=== PATIENT | male | born 1965 | race Caucasian/White ===

== ENCOUNTER 2020-03-15 09:54 | Outpatient (CLI) | payer OTHER, SELFPAY ==
[2020-03-15 23:33] LABS: SARS-CoV-2 RNA PCR Negative
== END 2020-03-15 09:55 | disposition home or self-care (01) ==
PROVIDERS: PCP Internal Medicine; Visit Provider Internal Medicine
DX: Z20.822 Contact with and (suspected) exposure to COVID-19 (principal)
CPT/HCPCS: C9803; U0003

== ENCOUNTER 2023-11-09 06:46 | Emergency (ER) | payer SELFPAY ==
[2023-11-09 06:52] VITALS: BP 168/105; PULSE 87; RESP 20; TEMP 36.3; O2SAT 97
--- NOTE | 2023-11-09 07:20 | ED.SKABFB ---
HPI - Skin/Abscess/Foreign Bdy General Chief complaint: Skin/Abscess/Foreign Body Stated complaint: rash Time Seen by Provider: 11/09/23 07:01 Source: patient Mode of arrival: ambulatory Limitations: no limitations History of Present Illness HPI narrative: Patient presents with complaint of an itchy rash over which was body. He was seen at an urgent care for this and told it was poison sumac. At that time he was prescribed 3 prescriptions: Prednisone (40 mg for 1 week followed by 20 mg for 1 week with 5 days left; after receiving intramuscular steroid shot), cetirizine 1 pill daily for a week (gone), and triamcinolone cream. The portion of the rash that was on face and left leg are healing but the rash persists on his bilateral arms, right greater than left as well as on his abdomen and flanks bilaterally. The rash has been present for approximately 1 and half weeks, nearly 2. He denies any shortness of breath. He has been using p.r.n. Benadryl to help him sleep as he states the itchiness is the most problematic complaint. He is on medication for blood pressure. He denies any vision problems. Related Data Allergies Allergy/AdvReac Type Severity Reaction Status Date / Time No Known Allergies Allergy Verified 11/09/23 06:55 PMFSH Past Medical History Medical History (Updated 11/09/23 @ 07:36 by Naye Billy MD) Dyslipidemia Essential (primary) hypertension Gout Social History Social History Smoking status: Unknown if ever smoked Alcohol intake: current Alcohol use details: Whiskey Substance use: never Substance use type: does not use Living arrangements: with family Occupation/Education: occupation Gender identity (if verbalized by the patient): Male Sexual Orientation (if Verbalized by the Patient): Straight or Heterosexual Exam Narrative: GENERAL: Well-appearing, well-nourished, and in no acute distress. HEAD: Normocephalic, atraumatic. EYES: Non injected, non icteric ENT: Nares clear, no rhinorrhea or epistaxis. NECK: Supple. CHEST: Speaking in full sentences. No respiratory distress. HEART: Regular rate and rhythm. . ABDOMEN: Soft, nondistended. EXTREMITIES: Normal range of motion. No lower extremity edema. SKIN: Warm, dry. Well-healing rash on left figueroa. Raised erythematous pruritic rash over bilateral forearms particularly on the right. Rash is also present on bilateral lower abdomen and bile low back/flanks. Some evidence of excoriation, no vesicles. NEURO: No focal deficits. Alert and oriented x3. PSYCH: Normal mood and affect. Course Vital Signs Vital signs: Vital Signs Temperature 97.3 F L 11/09/23 06:52 Pulse Rate 87 11/09/23 06:52 Respiratory Rate 20 11/09/23 06:52 Blood Pressure 168/105 H 11/09/23 06:52 Pulse Oximetry 97 11/09/23 06:52 Oxygen Delivery Room Air 11/09/23 06:52 Temperature 97.3 F L 11/09/23 06:52 Pulse Rate 87 11/09/23 06:52 Respiratory Rate 20 11/09/23 06:52 Blood Pressure 168/105 H 11/09/23 06:52 Pulse Oximetry 97 11/09/23 06:52 Oxygen Delivery Room Air 11/09/23 06:52 MDM - Skin/Abscess/Foreign Bdy MDM Narrative Medical decision making narrative: Patient presents with an itchy rash that has been present for 1 and half to 2 weeks. He was diagnosed with poison sumac and given steroids, antihistamines, and a cream. In the emergency department he is afebrile with vital signs notable for hypertension. Patient does have extensive rash. He is given 1 time dose of Atarax for itching as well in the emergency department and prescribed diphenhydramine for outpatient use. I do believe he would benefit from extended use of prednisone so will add prescription for a few more tablets of see only has 5 days left. Patient is also prescribed calamine lotion as well as steroid cream. Advised follow-up with primary care physician return to the emergency de
[2023-11-09] MEDS: hydrOXYzine HCL 25 MG TABLET PO (07:46)
[2023-11-09 07:53] VITALS: BP 167/105; PULSE 70; RESP 20; TEMP 36.5; O2SAT 99
== END 2023-11-09 07:54 | disposition home or self-care (01) ==
LOC: ANHED 07:41
PROVIDERS: Emergency Provider Student in an Organized Health Care Education/Training Program; PCP Physician Assistant Medical
DX: L25.9 Unspecified contact dermatitis, unspecified cause (principal); E78.5 Hyperlipidemia, unspecified; I10 Essential (primary) hypertension; M10.9 Gout, unspecified
CPT/HCPCS: 99283; A9270

== ENCOUNTER 2023-12-28 15:40 | Outpatient (CLI) | payer BC, SELFPAY ==
--- NOTE | ~2023-12-28 | MR_ITS ---
EXAMINATION: MR knee LT wo con DATE: 12/28/2023 16:19 INDICATION: Patellar fracture with instability at the left knee TECHNIQUE: Magnetic resonance imaging (MRI) of the left knee was performed without intravenous contra st. Sequences included coronal PD-weighted FSE, coronal PD-weighted FS FSE, sagittal T2-weighted FSE , sagittal PD-weighted FS FSE and axial PD weighted fat saturated FSE. COMPARISON: Left knee radiographs dated 12/02/23 FINDINGS: Medial compartment: Complex tear of the body and posterior horn of the medial meniscus which includes a full-thickness ra dial tear at the meniscal body. Extensive full and near full-thickness cartilage loss with underlying subarticular edema-like signal change along the anterior, central and medial aspect of the medial ti bial plateau along the anterior to central weightbearing medial femoral condyle. There is a small dep ression along the articular cortex at the anteriormost medial femoral condyle which could be secondar y to advanced osteoarthritis or an old impaction fracture. Lateral compartment: Increased signal extending to contact the superior articular surface at the anterior horn of the late ral meniscus consistent with a longitudinal vertical tear. Deep chondral fissuring without degenerati ve subchondral changes along the anterior to central weightbearing lateral femoral condyle. Patellofemoral compartment: Chronic nonunited sagittally oriented patellar fracture the lateral aspect of the lateral patellar fa cets versus normal variant bipartite patella. There is a third significantly smaller corticated locat ed at the cephalad aspect of the junction between the patella and the larger ossicle. Extensive deep trochlear chondral ulceration and fissuring with scattered cortical irregularity and small to moderat e size central subchondral osteophytes and mild subarticular edema-like signal change. There is also deep chondral ulceration with mild subarticular edema-like signal change at the patellar apical ridge and lateral side of the lateral patellar facet. Ligaments and tendons: Anterior and posterior cruciate ligaments are normal. Mild thickening and mild increased signal at th e proximal medial collateral and fibular collateral ligaments without surrounding edema consistent wi th mild scarring related to chronic sprains. Mild tendinopathy without discrete tear at the lateral a spect of the distal quadriceps tendon. Patellar tendon is normal. The visualized medial and lateral h amstring tendons as well as the iliotibial band are normal. Fluid: Moderate-sized knee joint effusion with moderate surrounding synovitis at the suprapatellar pouch. No loose osteochondral bodies identified. Osseous/other: No acute fracture or pathologic marrow replacing process. 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 IMPRESSION: 1. 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 2. Complex tear of the body and posterior horn of the medial meniscus and small longitudinal vertical tear at the anterior horn of the lateral meniscus. 3. Tricompartmental osteoarthritis, severe with extensive high-grade chondral malacia the medial comp artment, moderate severity with additional extensive high-grade chondral malacia the patellofemoral c ompartment and mild with moderate grade chondromalacia in the lateral compartment. 4. Moderate-sized left knee joint effusion with moderate synovitis. Reviewed, dictated and finalized at location A. IMPRESSION: 1. 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 2. Complex tear of the
== END 2023-12-28 15:41 | disposition home or self-care (01) ==
PROVIDERS: PCP Physician Assistant Medical; Visit Provider Nurse Practitioner Family
DX: M17.12 Unilateral primary osteoarthritis, left knee (principal); M25.462 Effusion, left knee; S83.232D Complex tear of medial meniscus, current injury, left knee, subsequent encounter; S83.282D Other tear of lateral meniscus, current injury, left knee, subsequent encounter; X58.XXXD Exposure to other specified factors, subsequent encounter
CPT/HCPCS: 73721

== ENCOUNTER 2024-04-05 09:14 | Outpatient (CLI) | payer BC, SELFPAY ==
--- NOTE | ~2024-04-05 | US_ITS ---
EXAMINATION: US carotid duplex BI DATE: 04/05/2024 09:34 INDICATION: Dizziness and giddiness. TECHNIQUE: Grayscale, color Doppler, and pulsed Doppler images of the cervical carotid arteries were obtained. The degree of vessel stenosis is placed in one of the following categories: normal, <50%, 5 0-69%, >=70% but less than near-occlusion, near-occlusion, or total occlusion. Note that percent sten osis relative to normal distal artery lumen diameter is indirectly measured from velocity measurement s as described by Shaun, et al. Radiology 2003; 229:340-346. COMPARISON: None. FINDINGS: RIGHT: The right common carotid artery (CCA) peak systolic velocity (PSV) is 106 cm/s. The right internal ca rotid artery (ICA) PSV is 103 cm/s. The right ICA end-diastolic velocity (EDV) is 39 cm/s. The right ICA/CCA PSV ratio is 1.0. Grayscale and color Doppler images yield an estimate of <50% diameter reduc tion from plaque in the ICA. The external carotid artery (ECA) PSV is 133 cm/s. There is antegrade fl ow in the right vertebral artery. LEFT: The left CCA PSV is 105 cm/s. The left ICA PSV is 99 cm/s. The left ICA EDV is 33 cm/s. The left ICA/ CCA PSV ratio is 0.9. Grayscale and color Doppler images yield an estimate of <50% diameter reduction from plaque in the ICA. The ECA PSV is 136 cm/s. There is antegrade flow in the left vertebral arter y. IMPRESSION: 1. <50% stenosis from minimal plaque in the right internal carotid artery. 2. <50% stenosis from minimal plaque in the left internal carotid artery. Reviewed, dictated and finalized at location B. [employer]
== END 2024-04-05 09:15 | disposition home or self-care (01) ==
LOC: GOSHIMG 09:14
PROVIDERS: PCP Nurse Practitioner Family; Visit Provider Nurse Practitioner Family
DX: I65.23 Occlusion and stenosis of bilateral carotid arteries (principal); I10 Essential (primary) hypertension; E78.5 Hyperlipidemia, unspecified; F41.9 Anxiety disorder, unspecified
CPT/HCPCS: 93880

== ENCOUNTER 2024-04-07 09:22 | Outpatient (CLI) | payer BC, SELFPAY ==
--- OUTSIDE RECORDS SUMMARY | 2024-04-07 09:54 | XMS_ITS | Patient Health Record ---
Author Organization [facility] [employer] [facility] Address [address] [facility] [address] [place] [address] Care Team Providers Care Circuit Tester Name Role Phone Jazzy Woody Primary Care Provider Christa Meza Unavailable [phone] Allergies No Known Allergies Results Component Value Reference Range Notes UDT Reviewed date:02/24/2024 01:31:24 PM Interpretation: Performing Lab: Notes/Report: THC neg 0 - 50 ng/ml Cocaine neg 0 - 300 ng/ml Amphetamine neg 0 - 1000 ng/ml Buprenorphine (BUP) neg 0 - 10 ng/ml Secobarbital (Bar) neg 0 - 300 ng/ml Oxazepam (BZO) neg 0 - 300 ng/ml 5-xfifudlbdq-9,5-ucylolpx-6,3-diphenylpyrrolidine (TERE P) neg 0 - 300 ng/ml Methamphetamine (MET) neg 0 - 1000 ng/ml Methylenedioxymethamphetamine (MDMA) neg 0 - 500 ng/ml Morphine (MOP 300/VNQ2418) neg 0 - 300 ng/ml Methadone (MTD) neg 0 - 300 ng/ml Phencyclidine (PCP) neg 0 - 25 ng/ml Propoxyphene (PPX) neg 0 - 300 ng/ml Nortriptyline (TCA) neg 0 - 1000 ng/ml Oxycodone neg 0 - 300 ng/ml Reason For Referral No Information Medications Medication SIG (Take, Route, Frequency, Duration) Notes Start Date End Date Status Olmesartan Medoxomil 20 MG 1 tablet Oral ly Once a day Active Rosuvastatin Calcium 10 MG 1 tablet Oral ly Once a day Active cloNIDine HCl 0.1 MG TAKE 1 TABLET EVERY 8 HOURS IF NEEDED FOR HYPERTENSION UNTIL FURTHER NOTICE; HOLD FOR BP LOWER THAN 150/80 Oral for 20 Days Active Naltrexone HCl 50 MG 1 tablet Orally Onc e a day for 90 days 04/04/2024 07/03/2024 Active Lurasidone HCl 40 MG 1 tablet in the raymundo juan antonio with food Orally Once a day for 90 days Active traZODone HCl 50 MG TAKE 1 TABLET ONCE DAILY AT BEDTIME (9PM) IF NEEDED FOR INSOMNIA UNTIL FURTHER NOTICE Oral for 30 Days Active Cyclobenzaprine HCl 10 MG TAKE 1 TABLET BY MOUTH THREE TIMES DAILY Oral for 20 Days Active traMADol HCl 50 MG TAKE 1 TABLET BY [place] TH TWICE DAILY NEEDED FOR PAIN Oral for 7 Days Active Social History Tobacco Use: Social History Observation Description Date Details (start date - stop date) Never Smoker NA - NA Sex Assigned At : Social History Observation Description Sex Assigned At Male Tobacco Control (Standard) Question Answer Notes Tobacco use: Nonsmoker Additional Findings: Tobacco user Chews tobacco AUDIT-C (Standard) Question Answer Notes Did you have a drink contain ing alcohol in the past year? Yes How often did you have six o r more drinks on one occasion in the past year? 4 or more times a week (4 points) How many drinks did you have on a typical day when you were drinking in the past year? 5 or 6 drinks (2 points) How often did you have a dri nk containing alcohol in the past year? Daily or almost daily (4 points) Problems Problem Type SNOMED Code ICD Code Onset Dates Problem Status W/U Status Risk Notes Problem Chronic alcoholism in remission (025896632) Alcohol dependence, in remission (F10.21) Active confirmed Problem Bipolar 2 disorder (82217144) Bipolar 2 disorder (F31.81) Active confirmed Vital Signs Heart Rate 96 /min 02/24/2024 Blood pressure diastolic 85 mm Hg 02/24/2024 Weight-kg 106.59 kg 02/24/2024 Blood pressure systolic 137 mm Hg 02/24/2024 Weight 235.0 lbs 02/24/2024 Encounters Encounter Location Date Provider Diagnosis [employer] [address] [facility] [address] [place] [address] 02/24/2024 Christa Car Bipolar 2 disorder F31.81 and Alcohol dependence, in remission F10.21 [employer] [address] [facility] [address] [place] [address] 04/04/2024 Christa Car Bipolar 2 disorder F31.81 and Alcohol dependence, in remission F10.21 Assessments Encounter Date Diagnosis (ICD Code) Assessment Notes Treatment Notes Treatment Clinical Notes Section Notes 02/24/2024 Bipolar 2 disorder (ICD-10 - F31.81) Second generation antipsychotics (SGAs) have metabolic syndrome issues with weight gain, increase in prolactin, increased waist circumference, increased lipids, and increased glucose. Thus routine monitoring of weight, metabolic labs, etc. is indicated. A general rank ordering of antipsychotics that have the greatest to the least risk of metabolic effects is olanzapine, quetiapine, risperidone, ziprasidone, and aripiprazole. However, weight gain can occur with all of these drugs and considerable variability exists among patients receiving the same drug regarding the risk of metabolic effects. Anti-psychotic agents not only increase the risk of metabolic disorder, they also increase the risk of CVA, akathisia, and movement disorders including EPS or tardive dyskinesia (more common with first generation antipsychotics) and more. 1. Bipolar 2 disorder no hx diagnosis; MDQ today positive; reports family history of bipolar disorder; symptoms do not last longer than 3-4 days at a time. History of significant impulsivity (gambling, spending money, substance use). -start lurasidone 40mg daily for mood stabilization -discontinue escitalopram, pt reports he is not taking consistently ---differentia l dx: ADHD, pt suspects ADHD; symptoms more consistent with bipolar disorder. Will monitor response to mood stabilizer and can re-evaluate if needed. 2. Alcohol use disorder In remission since Dec 2023. denies cravings or impulses to drink stable off of medication; can start naltrexone if needed in the future. Order labs next apt. 02/24/2024 Alcohol dependence, in remission (ICD-10 - F10.21) Stable 1. Bipolar 2 disorder no hx diagnosis; MDQ today positive; reports family history of bipolar disorder; symptoms do not last longer than 3-4 days at a time. History of significant impulsivity (gambling, spending money, substance use). -start lurasidone 40mg daily for mood stabilization -discontinue escitalopram, pt reports he is not taking consistently ---differentia l dx: ADHD, pt suspects ADHD; symptoms more consistent with bipolar disorder. Will monitor response to mood stabilizer and can re-evaluate if needed. 2. Alcohol use disorder In remission since Dec 2023. denies cravings or impulses to drink stable off of medication; can start naltrexone if needed in the future. Order labs next apt. 04/04/2024 Bipolar 2 disorder (ICD-10 - F31.81) Second generation antipsychotics (SGAs) have metabolic syndrome issues with weight gain, increase in prolactin, increased waist circumference, increased lipids, and increased glucose. Thus routine monitoring of weight, metabolic labs, etc. is indicated. A general rank ordering of antipsychotics that have the greatest to the least risk of metabolic effects is olanzapine, quetiapine, risperidone, ziprasidone, and aripiprazole. However, weight gain can occur with all of these drugs and considerable variability exists among patients receiving the same drug regarding the risk of metabolic effects. Anti-psychotic agents not only increase the risk of metabolic disorder, they also increase the risk of CVA, akathisia, and movement disorders including EPS or tardive dyskinesia (more common with first generation antipsychotics) and more. ---differentia l dx: ADHD, pt suspects ADHD; symptoms more consistent with bipolar disorder. Will monitor response to mood stabilizer and can re-evaluate if needed. 04/04/2024 Alcohol dependence, in remission (ICD-10 - F10.21) ---differentia l dx: ADHD, pt suspects ADHD; symptoms more consistent with bipolar disorder. Will monitor response to mood stabilizer and can re-evaluate if needed. 02/24/2024 Other Start luradisone 40mg daily. -educated to take with at least 350 calories Patient educated on all medications including potential benefits, side effects, risks. Educated on proper dosing schedule and importance of compliance. -Assessment and treatment plan reviewed with patient. -Compliance with treatment plan importance discussed. -Discussed the risks/benefits of this medication -Discussed medication side effects. -Contact office if symptoms worsen. -Discussed that it can take up to 6-8 weeks to see full therapeutic effects of psychotropic medications. -Crisis prevention hotline 988. 1. Bipolar 2 disorder no hx diagnosis; MDQ today positive; reports family history of bipolar disorder; symptoms do not last longer than 3-4 days at a time. History of significant impulsivity (gambling, spending money, substance use). -start lurasidone 40mg daily for mood stabilization -discontinue escitalopram, pt reports he is not taking consistently ---differentia l dx: ADHD, pt suspects ADHD; symptoms more consistent with bipolar disorder. Will monitor response to mood stabilizer and can re-evaluate if needed. 2. Alcohol use disorder In remission since Dec 2023. denies cravings or impulses to drink stable off of medication; can start naltrexone if needed in the future. Order labs next apt. 04/04/2024 Other Start naltrexone 50mg daily for alcohol cravings. -PDMP checked to verify no opioid medication prescribed. Patient educated on all medications including potential benefits, side effects, risks. Educated on proper dosing schedule and importance of compliance. Scheduled for intake at [facility] -Assessment and treatment plan reviewed with patient. -Compliance with treatment plan importance discussed. -Discussed the risks/benefits of this medication -Discussed medication side effects. -Contact office if symptoms worsen. -Discussed that it can take up to 6-8 weeks to see full therapeutic effects of psychotropic medications. -Crisis prevention hotline 058. ---differentia l dx: ADHD, pt suspects ADHD; symptoms more consistent with bipolar disorder. Will monitor response to mood stabilizer and can re-evaluate if needed. Plan Of Treatment Next Appt Details Provider Name:Christa Car, 05/02/2024 08:45:00 AM, [address], [address], [place], [address], Insurance Providers Payer Name Payer Address Payer Phone Subscriber Number Group Number Insured Name Patient Relationship to Insured Coverage Start Date Coverage End Date [facility] [address] [place] [address] [id number] SANDIE ROMANO Self - patient is the insured Medical (General) History Medical History History ICD Code Past Psychiatric History: Anxiety Disord er,Bipolar Disorder abdominal aortic aneurysm: No atrial fibrillation: No chronic fatigue syndrome: No essential tremor: No hyperlipidemia: No hypertension: Yes Parkinson's disease: No restless leg syndrome: Yes stroke: No subdural hematoma: No type 1 diabetes mellitus: No type 2 diabetes mellitus: No vitamin B12 deficiency: No vitamin D deficiency: No Surgical History Surgery Date(Month/Year) Prostate removal s/p cancer
--- OUTSIDE RECORDS SUMMARY | 2024-04-07 09:54 | XMS_ITS | Data Portability ---
Author Organization [place] - .[facility], [facility] Address [address] [place] [address] Assessment No assessment recorded. Plan of Treatment Reminders Order Date Submit Date Provider Last Modified By Organization Details Last Modified Time Details Appointments None record ed. Lab None record ed. Referral None record ed. Procedures None record ed. Surgeries None record ed. Imaging None record ed. Medication Orders None record ed. Patient TargetsNo targets recorded. Patient Instructions Encounter Date Encounter Id Patient Instructions Last Modified By Organization Details Last Modified Time 01/22/2024 [id number] A healthy lifestyle: care instructions Not available 01/22/2024 15:41:14 Thank you for visiting [facility]. We may be calling you to review your lab results or schedule a follow up appointment. The call will be through an automated system which asks you to press a montez to speak with one of our agents. Please be on the lookout for this call and listen to the message in its entirety. You may also view your lab results using the [employer] kayla, available in the Kayla Store and [employer]. First-time kayla users will need to create an account; please note you? l l need to select a login and password for the kayla versus just using your patient portal login. Your lab results will be posted to the [employer] kayla as soon as they? r e available. Need a note to excuse you from work or school? You can submit a request online at [email or web address]. We will respond to your request within 2 business days If you have any questions regarding your visit, our Aftercare department can be reached at [phone]. Our hours are Yemi ? Thursday from 8 am ? 11 pm or Thursday/Thursday from 9a ? 8p. [email or web address] Not available 01/22/2024 15:18:08 Reason for Referral None Reported. Problems Name Problem SNOMED Code Status Onset Date Resolution Date Notes Provider Name and Address Organization Details Recorded Time Dyslipidemia 097246131 Active 2023 [place], [place] - .[facility] 15:27:44 Gout 05168531 Active 2023 [place], [place] - .[facility] 15:27:47 Hypertensive disorder 57361872 Active 2023 [place], [place] - .[facility] 15:27:55 Arthritis 2027447 Active 2023 [place], [place] - .[facility] 15:28:03 Problem Notes None recorded. Medical Equipment None Reported. Medications Name Sig Start Date Stop Date Status Note LastModified by Organization Details LastModified Time clonidine active Not Available Not Erinn ilable Not Available diclofenac sodium active Not Available Not Available Not Available trazodone active Not Available Not Erinn ilable Not Available allopurinol active Not Available Not A vailable Not Available olmesartan active Not Available Not Av ailable Not Available rosuvastatin active Not Available Not Available Not Available Vitals Date Recorded Body height Body mass index (BMI) Body weight Provider Name and Address Organization Details Last Updated DateTime 01/22/2024 180.34 cm 31.9 kg/m2 930614.65 g [facility] 01/22/2024 15:29:41 Date Recorded Heart rate Body temperature Respiratory rate Oxygen saturation Oxygen saturation in Arterial blood by Pulse oximetry Systolic blood pressure Diastolic blood pressure Provider Name and Address Organization Details Last Updated DateTime 4 71 /min 97.9 [degF] 16 /min 97 % 97 % 135 mm[Hg] 80 mm[Hg] Melani Isabel [place] - .[facility] 15:31:27 Social History None recorded. Functional Status None recorded. Mental Status None recorded. Family History Nothing Reported. Medical History No medical history recorded. Past Encounters Encounter ID Performer Location Encounter Start Date Encounter Closed Date Diagnosis/Indication Diagnosis SNOMED-CT Code Diagnosis ICD10 Code Diagnosis Note [id number] Mliana ORDOÑEZ [facility] [address] [address] 01/22/2024 15:00:09 01/22/2024 15:36:50 History and physical examination, pre-employment 513732661 Z02.1 Health Concerns Section Related Observation LastModified by Organization Detai ls LastModified Time None Recorded Concern Status LastModified by Organization Details LastModified Time None Recorded Advance Directives Directive None Recorded Payers Encounter Date Sequence Insurance Name Policy Number Policy Bruner Covered Member ID Bruner Member ID Guarantor Name 01/22/2024 1 [place] [id number] Toni Camarillo [id number] Toni Camarillo Notes Date Note Type Note Provider Name and Address Organization Details Recorded Time 4 text/html .[facility] - Physical ExamReported bypatient.source of patient informationpatient Patient presents for an employment physicalPre-Employment Patient presents for pre-employment physical exam Milana ORDOÑEZ [address] [place], [address], [facility] - .[facility] 01/22/2024 15:41:25
--- OUTSIDE RECORDS SUMMARY | 2024-04-07 09:54 | XMS_ITS ---
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 Role Phone Jazzy Woody Primary Care Provider Birgit Triny Alarcon Unavailable [phone] Allergies No Known Allergies Results Component Value Reference Range Notes UDT Reviewed date:02/24/2024 01:31:24 PM Interpretation: Performing Lab: Notes/Report: 0 THC neg 0 - 50 ng/ml Cocaine neg 0 - 300 ng/ml Amphetamine neg 0 - 1000 ng/ml Buprenorphine (BUP) neg 0 - 10 ng/ml Secobarbital (Bar) neg 0 - 300 ng/ml Oxazepam (BZO) neg 0 - 300 ng/ml 4-dsruhciscq-4,8-twipkgwd-8,3-diphenylpyrrolidine (TERE P) neg 0 - 300 ng/ml Methamphetamine (MET) neg 0 - 1000 ng/ml Methylenedioxymethamphetamine (MDMA) neg 0 - 500 ng/ml Morphine (MOP 300/TLT1006) neg 0 - 300 ng/ml Methadone (MTD) neg 0 - 300 ng/ml Phencyclidine (PCP) neg 0 - 25 ng/ml Propoxyphene (PPX) neg 0 - 300 ng/ml Nortriptyline (TCA) neg 0 - 1000 ng/ml Oxycodone neg 0 - 300 ng/ml REASON FOR VISIT Suffers from ADD and would like to establish care. Medications Medication SIG (Take, Route, Frequency, Duration) Notes Start Date End Date Status traZODone HCl 50 MG Oral for 30 Days Not-Taking Olmesartan Medoxomil 20 MG 1 tablet Orally Once a day Active Rosuvastatin Calcium 10 MG 1 tablet Orally Once a day Active cloNIDine HCl 0.1 MG TAKE 1 TABLET EVERY 8 HOURS IF NEEDED FOR HYPERTENSION UNTIL FURTHER NOTICE; HOLD FOR BP LOWER THAN 150/80 Oral for 20 Days Active traZODone HCl 50 MG TAKE 1 TABLET ONCE D AILY AT BEDTIME (9PM) IF NEEDED FOR INSOMNIA UNTIL FURTHER NOTICE Oral for 30 Days Active Lurasidone HCl 40 MG 1 tablet in the raymundo juan antonio with food Orally Once a day for 30 days 02/24/2024 Active Jublia 10 % APPLY TOPICALLY TO T HE AFFECTED AREA EVERY DAY AT BEDTIME FOR 48 WEEKS External for 90 Days Not-Taking Social History Tobacco Use: Social History Observation Description Date Details (start date - stop date) Unknown Sex Assigned At : Social History Observation Description Sex Assigned At Male Tobacco Control (Standard) Question Answer Notes Tobacco use: Uses tobacco in other forms Additional Findings: Tobacco user Chews tobacco AUDIT-C [...] Problem Status W/U Status Risk Notes Problem Bipolar 2 disorder (32413235) Bipolar 2 disorder (F31.81) Active confirmed Problem Chronic alcoholism in remission (672899321) Alcohol dependence, in remission (F10.21) Active confirmed Vital Signs Blood pressure systolic 137 mm Hg 02/24/20 24 Blood pressure diastolic 85 mm Hg 024 Heart Rate 96 /min 02/24/2024 Weight 235.0 lbs 02/24/2024 Weight-kg 106.59 kg 02/24/2024 Encounters Encounter Location Date Provider Diagnosis [facility] [email or web address] [facility] [address] [facility] [address] [place] [address] 02/24/2024 Trinyjuan alberto Martinezag Bipolar 2 disorder F31.81 and Alcohol dependence, [...] the future. Order labs next apt. 02/24/2024 Other Start luradisone 40mg daily. -educated [...] in the future. Order labs next apt. Plan Of Treatment Medication Medication Name Sig Start Date Stop Date Notes Escitalopram Oxalate 20 MG 1 tablet Orally Once a day Lurasidone HCl 40 MG 1 tablet in the raymundo juan antonio with food Orally Once a day for 30 days 02/24/2024 Treatment Notes Assessment Notes Bipolar 2 disorder Second generation an tipsychotics (SGAs) have metabolic syndrome issues with weight [...] common with first generation antipsychotics) and more. Alcohol dependence, in remission Stable Other Start luradisone 40mg daily. -educated to take with at least 350 calories Patient educated on all medications including potential benefits, side effects, risks. Educated on proper dosing schedule and importance of compliance. Next Appt Details Follow Up: 6 Weeks, Reason: medication follow up Provider Name:Triny Car, 05/02/2024 08:45:00 AM, [address], [facility] [address], [place], [address], Progress Notes * SANDIE ROMANODOB:1965 (58 yo M)Acc No.[id number]:02/24/2024 Patient:?SANDIE ROMANO Provider:?TRINY CAR PMHNP :1965???Age:58 Y???Sex:Male Brian e:02/24/2024 Phone: Address:[address] [place], [place] [id number] Pcp:Jazzy Newell [facility]- Subjective: * Chief Complaints: * ???Suffers from ADD and woul d like to establish care. * HPI: ???Depression Screening:?ROLDAN-7 (2018 Edition)?Feeling nervous, anxious, or on edge?Several days,?Not being able to stop or control worrying?Several days,?Worrying too much about different things?Several days,?Trouble relaxing?Several days,?Being so restless that it is hard to sit still?Several days,?Becoming easily annoyed or irritable?More than half the days,?Feeling afraid as if something awful might happen?Not at all.?[place]-Suicide Severity Rating Scale:?Suicide Risk (CSRS-screener)?in the past one month Have you wished you were or wished you could go to sleep and not wake up??No,?in the past one month Have you actually had any thoughts of killing yourself??No,?Have you ever done anything, started to do anything, or prepared to do anything to end your life??No.?Depression screening:?PHQ-9?Little interest or pleasure in doing things?More than half the days,?Feeling down, depressed, or hopeless?Several days,?Trouble falling or staying asleep, or sleeping too much?Several days,?Feeling tired or having little energy?Several days,?Poor appetite or overeating?Not at all,?Feeling bad about yourself or that you are a failure, or have let yourself or your family down?Several days,?Trouble concentrating on things, such as reading the newspaper or watching television?More than half the days,?Moving or speaking so slowly that other people could have noticed; or the opposite, being so fidgety or restless that you have been moving around a lot more than usual?Not at all,?Thoughts that you would be better off or of hurting yourself in some way?Not at all,?Total Score?8,?Interpretation?Mild Depression.?Intervention?Depression Screening Findings?Positve,?Follow-Up for Depression?Mental health treatment assessment, Patient follow-up to return when and if necessary,?Suicide Risk Assessment Performed 02/24/2024,?Additional Evaluation for Depression?Psychiatric interview and evaluation,?Name of the standardized tool used for adult depression screening:?Patient Health Questionnaire (PHQ-9).?History of Presenting Problem:?Anxiety?with excessive worry, with restlessness.?Depression?with decreased concentration, with decreased energy, with sad mood.?Mood lability?Has there ever been a period of time when you were not your usual self and- ? you felt so good or so hyper that other people thought you were not your normal self or you were so hyper that you got into trouble? NO ? you were so irritable that you shouted at people or started fights or arguments? YES ?you felt much more self-confident than usual? YES- at work would have inflated self esteem- I know Im right ? you got much less sleep than usual and found you didn't really miss it? YES ?you were much more talkative or spoke faster than usual? NO ?thoughts raced through your head or you couldn't slow your mind down? YES?you were so easily distracted by things around you that you had trouble concentrating or staying on track? YES ?you had much more energy than usual? YES?you were much more active or did many more things than usual? NO ?you were much more social or outgoing than usual, for example, you telephoned friends in the middle of the night? NO ?you were much more interested in sex than usual? NO ?you did things that were unusual for you or that other people might have thought were excessive, foolish, or risky? NO?spending money got you or your family in trouble?YES?Family hx bipolar- SON?.?Psychosis?no hx psychosis.?Substance abuse?alcohol- sober December 22 2023.?.?Suicidal ideation?denies.?Here to establish care. Reports he recently got out of alcohol rehab in [place], was there for 33 days, discharged about two weeks ago. He was drinking whiskey, at least two pints daily for the last several years. Was living in [place] for his job for the past several years, did not enjoy there, i was bored , triggered increase in drinking. Denies alcohol use since discharge, no cravings to drink. Denies history of withdrawal symptoms.? He is wondering if he has ADHD or bipolar disorder. Reports history of significant irritability, I will get set off easily . He has become physically agitated in the past and broken things in the past, slam his fist.??Also has been impulsively gambling since getting home from detox, has lost about 4000 dollars over the past month. Reports difficulty maintaining concentration and focus, forgetful of what people tell her. PCP prescribed him escitalopram for anxiety, which he has not been taking consistantly. Reports he stresses over not getting things done, feels he is a very impatient person, gets frustrated with himself, often feels disorganized. States he has an impulsive personality.?Anixety- I get nervous a lot . Denies panic attacks. Denies feeling hopeless or helpless.? Sleep is good with Trazodone- getting about 8 hours nightly. Energy is improved since quitting drinking.? Appetite is good. ???Past Psychiatric Hospitalizations:?Previous psychiatric hospitalizations?Previous Psychiatric Hospitalization?No.?Social hx:? . 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, arthritis, high cholesterol, HTN, prostate cancer-removed 2022.? Legal hx:? DIU 2022? ? Past psychiatric hx-? Hx ECT/TMS/esketamine:? none? Past [facility] admissions/IOP/PHP: none? ? Previous suicide attempts:? denies? Previous self-harming:? denies? Family psychiatric hx:? son-bipolar, ADHD? Previous medications:? escitalopram? Supplements:? none? ? Substance use hx: none? Nicotine: chew tobacco? Alcohol: Sober since December 2023. * ROS:?General / Constitutional:?Patient denies?change in appetite, headache, lightheadedness, sleep disturbance, weight gain, weight loss.?Cardiovascular:?Patient denies?palpitations.?Gastrointestinal:?Patient denies?nausea, vomiting, constipation.?Neurologic:?Patient denies?confusion, tic, tremor.?Psychiatric:?Patient denies?auditory / visual hallucinations, delusions, suicidal thoughts, psychosis, involuntary movements.?Patient complains of?anxiety, irritability, difficulty concentrating.?Comments?See HPI for details.?Performance Met:?Normal blood pressure reading documented, follow-up not required?(G8783). * Medical History:? * Surgical History:?Prostate r emoval s/p cancer * Hospitalization/Major Diagno stic Procedure:? * Family History:?Father: None .?Maternal Aunt: None.?Maternal Uncle: None.?Paternal Aunt: None.?Paternal Uncle: None.?Mother: None.?Paternal Grandfather: None.?Paternal Grandmother: None.?Maternal Grandmother: None.?Brother: None.?Sister: None.?Son: Bipolar Disorder.?Daughter: None.? * Social History:?Tobacco Use:?Tobacco Control (Standard)?Tobacco use:?Uses tobacco in other forms,?Additional Findings: Tobacco user?Chews tobacco.?Drug/Alcohol:?Drugs?Have you used drugs other than those for medical reasons in the past 12 months??No.?AUDIT-C (Standard)?Did you have a drink containing alcohol in the past year??Yes,?How often did you have six or more drinks on one occasion in the past year??4 or more times a week (4 points),?How many drinks did you have on a typical day when you were drinking in the past year??5 or 6 drinks (2 points),?How often did you have a drink containing alcohol in the past year??Daily or almost daily (4 points).?Miscellaneous:?Occupation: Retired. Safety issues?Are there any firearms in the house??No.?Advance Care Planning?Are you your own decision-maker?Yes,?Do you have Power of Grocery Carrier for Health or Medical??Yes,?Do you have a power of traffic law attorney for health??Yes,?Do you have power of traffic law attorney for Medical ??Yes,?If yes, then please bring the A paperwork so that we can upload it.?Yes.?Social History:?Household?Marital Status:?,?Number of Adults in household:?2,?Number of Children in Household:?0,?Level of Education:?Finished College.? * Medications:?TakingOlmesarta n Medoxomil 20 MG Tablet 1 tablet Orally Once a day Rosuvastatin Calcium 10 MG Tablet 1 tablet Orally Once a day cloNIDine HCl 0.1 MG Tablet TAKE 1 TABLET EVERY 8 HOURS IF NEEDED FOR HYPERTENSION UNTIL FURTHER NOTICE; HOLD FOR BP LOWER THAN 150/80 Oral traZODone HCl 50 MG Tablet TAKE 1 TABLET ONCE DAILY AT BEDTIME (9PM) IF NEEDED FOR INSOMNIA UNTIL FURTHER NOTICE Oral Taking Olmesartan Medoxomil 20 MG Tablet 1 tablet Orally Once a day Taking Rosuvastatin Calcium 10 MG Tablet 1 tablet Orally Once a day Taking cloNIDine HCl 0.1 MG Tablet TAKE 1 TABLET EVERY 8 HOURS IF NEEDED FOR HYPERTENSION UNTIL FURTHER NOTICE; HOLD FOR BP LOWER THAN 150/80 Oral Taking traZODone HCl 50 MG Tablet TAKE 1 TABLET ONCE DAILY AT BEDTIME (9PM) IF NEEDED FOR INSOMNIA UNTIL FURTHER NOTICE Oral Not-TakingEscitalopram Oxalate 20 MG Tablet 1 tablet Orally Once a day Jublia 10 % Solution APPLY TOPICALLY TO THE AFFECTED AREA EVERY DAY AT BEDTIME FOR 48 WEEKS External traZODone HCl 50 MG Tablet Oral Medication List reviewed and reconciled with the patientNot-Taking Escitalopram Oxalate 20 MG Tablet 1 tablet Orally Once a day Not-Taking Jublia 10 % Solution APPLY TOPICALLY TO THE AFFECTED AREA EVERY DAY AT BEDTIME FOR 48 WEEKS External Not-Taking traZODone HCl 50 MG Tablet Oral Medication List reviewed and reconciled with the patient * Allergies:?N.K.D.A.no[Allerg ies Verified] Objective: * Vitals:?BP:137/85mm Hg, HR:9 6/min, Wt:235.0lbs, Wt-k.59 kg. * Examination: ???Psychiatry: ?Appearance:?well-groomed.?Abnormal body movements:?none.?Affect / mood:?appropriate.?Attention:?good.?Attitude:?cooperative.?Homicidal ideation:?none.?Suicidal ideation:?none.?Degree of awareness of surroundings:?within normal limits.?Delusions:?no.?Hallucinations:?no.?Insight:?good.?Judgement:?good.?Orientation:?awake, alert and oriented x 3.?Perceptual disorders:?no perceptual disorder noted.?Psychomotor activity:?within normal range.?Speech / language:?normal rate, volume, and articulation (RVR), clear and coherent, appropriate pitch/modulation.?Thought content:?appropriate.?Thought process:?intact.? Assessment: * Assessment: 1.?Bipolar 2 disorder - F31. 81 (Primary)???2.?Alcohol dependence, in remission - F10.21??? 1. Bipolar 2 disorder no hx diagnosis; MDQ today positive; reports family history of bipolar disorder; symptoms do not last longer than 3-4 days at a time. History of significant impulsivity (gambling, spending money, substance use). -start lurasidone 40mg daily for mood stabilization -discontinue escitalopram, pt reports he is not taking consistently ---differential dx: ADHD, pt suspects ADHD; symptoms more consistent with bipolar disorder. Will monitor response to mood stabilizer and can re-evaluate if needed. 2. Alcohol use disorder In remission since Dec 2023. denies cravings or impulses to drink stable off of medication; can start naltrexone if needed in the future. Order labs next apt. Plan: * Treatment: 2.?Alcohol dependence, in re mission? Notes: Stable ?? 3.?Others? Notes: Start luradisone 40mg daily. -educated to take with at least 350 calories Patient educated on all medications including potential benefits, side effects, risks. Educated on proper dosing schedule and importance of compliance. ?? Clinical Notes: -Assessment and treatment plan reviewed with patient. -Compliance with treatment plan importance discussed. -Discussed the risks/benefits of this medication -Discussed medication side effects. -Contact office if symptoms worsen. -Discussed that it can take up to 6-8 weeks to see full therapeutic effects of psychotropic medications. -Crisis prevention hotline 658. ?? * Labs:? * ?Lab: UDT (Collection Da te & Time - 02/24/2024) ? Value Reference Range ?THC neg 0 - 50 ng/ml * ?Cocaine neg 0 - 300 ng/ml * ?Amphetamine neg 0 - 1000 ng /ml * ?Buprenorphine (BUP) neg 0 - 10 ng/ml * ?Secobarbital (Bar) neg 0 - 300 ng/ml * ?Oxazepam (BZO) neg 0 - 300 ng/ml * ?6-lklgufnjyj-4,4-jmmvqzyc-1,3-diphenylpyrrolidine (EDDP) neg 0 - 300 ng/ml * ?Methamphetamine (MET) neg 0 - 1000 ng/ml * ?Methylenedioxymethamphetamine (MDMA) neg 0 - 500 ng/ml * ?Morphine (MOP 300/XYA1214) neg 0 - 300 ng/ml * ?Methadone (MTD) neg 0 - 300 ng/ml * ?Phencyclidine (PCP) neg 0 - 25 ng/ml * ?Propoxyphene (PPX) neg 0 - 300 ng/ml * ?Nortriptyline (TCA) neg 0 - 1000 ng/ml * ?Oxycodone neg 0 - 300 ng/ml * Procedure Codes:?38939 PSYCH IATRIC DIAGNOSTIC EVAL W/MEDICAL [id number] Screen unhlthy etoh [id number] BEHAV ASSMT W/SCORE & DOCD/STAND [id number] NORMAL BP READING DOC F/U NOT [id number] Pt scrn tbco and id as [id number] VISIT COMPLEXITY INHERENT TO ONGOING CARE RELATED TO A PATIENT'S SINGLE, SERIOUS CONDITION OR A COMPLEX [id number] DRUG TST PRSMV READ INSTRMNT ASSTD DIR OPT [id number] CLIN DEPRESSION SCREEN DOC * Preventive Medicine:? ??Counseling:?Communication to patient:?Counseled the Patient on tobacco use; cessation provided? ,?Counseled the Patient on smoking cessation; education provided?02/24/2024.?Patient Education:?.? ??Screenings:?Alcohol misuse screening?Have you had a recent alcohol misuse screening??Yes.?Smoking Cessation counseling done Discuss the importance of quitting smoking,. * Follow Up:?6 Weeks (Reason: medication follow up) * Billing Information: * Visit Code:? * Procedure Codes:? 02185 PSYCHIATRIC DIAGNOSTIC EVAL W/MEDICAL SERVICES. G2196 Screen unhlthy etoh use. 75899 BEHAV ASSMT W/SCORE & DOCD/STAND INSTRUMENT. G8783 NORMAL BP READING DOC F/U NOT RQR. G9902 Pt scrn tbco and id as user. G2211 VISIT COMPLEXITY INHERENT TO ONGOING CARE RELATED TO A PATIENT'S SINGLE, SERIOUS CONDITION OR A COMPLEX CONDITION. 20894 DRUG TST PRSMV READ INSTRMNT ASSTD DIR OPT OBS. G8431 CLIN DEPRESSION SCREEN DOC. 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 Reports he recently got out of alcohol rehab in [place], was there for 33 days, discharged about two weeks ago. He was drinking whiskey, at least two pints daily for the last several years. Was living in [place] for his job for the past several years, did not enjoy there, i was bored , triggered increase in drinking. Denies alcohol use since discharge, no cravings to drink. Denies history of withdrawal symptoms. He is wondering if he has ADHD or bipolar disorder. Reports history of significant irritability, I will get set off easily . He has become physically agitated in the past and broken things in the past, slam his fist. Also has been impulsively gambling since getting home from detox, has lost about 4000 dollars over the past month. Reports difficulty maintaining concentration and focus, forgetful of what people tell her. PCP prescribed him escitalopram for anxiety, which he has not been taking consistantly. Reports he stresses over not getting things done, feels he is a very impatient person, gets frustrated with himself, often feels disorganized. States he has an impulsive personality. Anixety- I get nervous a lot . Denies panic attacks. Denies feeling hopeless or helpless. Sleep is good with Trazodone- getting about 8 hours nightly. Energy is improved since quitting drinking. Appetite is good. Depression with decreased erasto ntration, with decreased energy, with sad mood Substance abuse alcohol- sober Octob er 15 2023. Suicidal ideation denies Psychosis no hx psychosis Mood lability Has there ever been a period of time when you were not your usual self and- you felt so good or so hyper that other people thought you were not your normal self or you were so hyper that you got into trouble? NO you were so irritable that you shouted at people or started fights or arguments? YES you felt much more self-confident than usual? YES- at work would have inflated self esteem- I know Im right you got much less sleep than usual and found you didn't really miss it? YES you were much more talkative or spoke faster than usual? NO thoughts raced through your head or you couldn't slow your mind down? YES you were so easily distracted by things around you that you had trouble concentrating or staying on track? YES you had much more energy than usual? YES you were much more active or did many more things than usual? NO you were much more social or outgoing than usual, for example, you telephoned friends in the middle of the night? NO you were much more interested in sex than usual? NO you did things that were unusual for you or that other people might have thought were excessive, foolish, or risky? NO spending money got you or your family in trouble?YES Family hx bipolar- SON Past Psychiatric Hospitalizations Previous psychiatric hospitalizations Previous Psychiatric Hospitalization: No Social hx: . 4 children.Currently residing with daughter. 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 Legal hx: DIU 2022 Past psychiatric hx- Hx ECT/TMS/esketamine: none Past [facility] admissions/IOP/PHP: none Previous suicide attempts: denies Previous self-harming: denies Family psychiatric hx: son-bipolar, ADHD Previous medications: escitalopram Supplements: none Substance use hx: none Nicotine: chew tobacco Alcohol: Sober since December 2023 Depression screening PHQ-9 Little interest or pleasure in doing things: More than half the days Feeling down, depressed, or hopeless: Se veral days Trouble falling or staying asleep, or sl eeping too much: Several days Feeling tired or having little energy: S everal days Poor appetite or overeating: Not at all Feeling bad about yourself o r that you are a failure, or have let yourself or your family down: Several days Trouble concentrating on thi ngs, such as reading the newspaper or watching television: More than half the days Moving or speaking so slowly that other people could have noticed; or the opposite, being so fidgety or restless that you have been moving around a lot more than usual: Not at all Thoughts that you would be b ankur off or of hurting yourself in some way: Not at all Total Score: 8 Interpretation: Mild Depression Intervention Depression Screening Findings: P ositve Follow-Up for Depression: [facility] treatment assessment, Patient follow-up to return when and if necessary Suicide Risk Assessment Performed: 02/23 Additional Evaluation for Depression: Ps ychiatric interview and evaluation Name of the standardized too l used for adult depression screening:: Patient Health Questionnaire (PHQ-9) Depression Screening ROLDAN-7 (2018 Edition) Feelin g nervous, anxious, or on edge: Several days Not being able to stop or control worryi ng: Several days Worrying too much about different things : Several days Trouble relaxing: Several days Being so restless that it is hard to sit still: Several days Becoming easily annoyed or irritable: Mo re than half the days Feeling afraid as if something awful donovan ht happen: Not at all [place]-Suicide Severity Rating Scale Suicide Risk (CSRS-screener) in the past one month Have you wished you were or wished you could go to sleep and not wake up?: No in the past one month Have y ou actually had any thoughts of killing yourself?: No ?Have you ever done anything , started to do anything, or prepared to do anything to end your life?: No Examination Category Sub-Category Detail Notes Category Not es Psychiatry Appearance: well-groomed Attitude: cooperative Psychomotor activity: within normal rang e Abnormal body movements: none Attention: good Degree of awareness of surroundings: wit hin normal limits Orientation: awake, alert and juan pablo ented x 3 Affect / mood: appropriate Speech / language: normal rate, volume, and articulation (RVR), clear and coherent, appropriate pitch/modulation Insight: good Judgement: good Thought process: intact Thought content: appropriate Perceptual disorders: no perceptual diso rder noted Suicidal ideation: none Homicidal ideation: none Delusions: no Hallucinations: no
--- OUTSIDE RECORDS SUMMARY | 2024-04-07 09:55 | XMS_ITS ---
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 Name Role Phone Jazzy Woody Primary Care Provider Birgit Triny Alarcon Unavailable [phone] Allergies No Known Allergies REASON FOR VISIT follow up Medications Medication SIG (Take, Route, Frequency, Duration) Notes Start Date End Date Status Rosuvastatin Calcium 10 MG 1 tablet Oral [...] FOR PAIN Oral for 7 Days Active Olmesartan Medoxomil 20 MG 1 tablet Oral ly Once a day Active Naltrexone HCl 50 MG 1 tablet Orally Onc e a day for 90 days 04/04/2024 07/03/2024 Active Lurasidone HCl 40 MG 1 tablet in the raymundo juan antonio with food Orally Once a day for 90 days Active Social History Tobacco Use: Social History [...] year? Daily or almost daily (4 points) Encounters Encounter Location Date Provider Diagnosis [facility] [address] [address] 04/04/2024 Triny Car Bipolar 2 disorder F31.81 and Alcohol dependence, in remission F10.21 Assessments Encounter Date Diagnosis (ICD Code) Assessment Notes Treatment Notes Treatment Clinical Notes Section Notes 04/04/2024 Bipolar 2 disorder (ICD-10 - F31.81) [...] common with first generation antipsychotics) and more. ---differenti al dx: ADHD, pt suspects ADHD; symptoms more consistent with bipolar disorder. Will monitor response to mood stabilizer and can re-evaluate if needed. 04/04/2024 Alcohol dependence, in remission (ICD-10 - F10.21) ---differenti al dx: ADHD, pt suspects ADHD; symptoms more consistent with bipolar disorder. Will monitor response to mood stabilizer and can re-evaluate if needed. 04/04/2024 Other Start naltrexone 50mg daily for alcohol cravings. -PDMP checked to verify no opioid medication prescribed. Patient educated on all medications including potential benefits, side effects, risks. Educated on proper dosing schedule and importance of compliance. Scheduled for intake at [facility] -Assessment and treatment plan reviewed with patient. -Compliance with treatment plan importance discussed. -Discussed the risks/benefits of this medication -Discussed medication side effects. -Contact office if symptoms worsen. -Discussed that it can take up to 6-8 weeks to see full therapeutic effects of psychotropic medications. -Crisis prevention hotline 198. ---differenti al dx: ADHD, pt suspects ADHD; symptoms more consistent with bipolar disorder. Will monitor response to mood stabilizer and can re-evaluate if needed. Plan Of Treatment Medication Medication Name Sig Start Date Stop Date Notes Naltrexone HCl 50 MG 1 tablet Orally Onc e a day for 90 days 04/04/2024 07/03/2024 Lurasidone HCl 40 MG 1 tablet in the raymundo juan antonio with food Orally Once a day for 90 days Treatment Notes Assessment Notes Bipolar 2 disorder [...] common with first generation antipsychotics) and more. Other Start naltrexone 50mg daily for alcohol cravings. -PDMP checked to verify no opioid medication prescribed. Patient educated on all medications including potential benefits, side effects, risks. Educated on proper dosing schedule and importance of compliance. Scheduled for intake at [facility] Next Appt Details Follow Up: 4 Weeks, Reason: medication follow up Provider Name:Triny Car, 05/02/2024 08:45:00 AM, [address] [facility] [facility] [address], [place], [address], Progress Notes * SANDIE ROMANODOB:1965 (58 yo M)Acc No.[id number]:04/04/2024 Patient:?SANDIE ROMANO Provider:?TRINY CAR PMHNP :1965???Age:58 Y???Sex:Male Brian e:04/04/2024 Phone: Address:[address] [facility] Pcp:Jazzy Newell [facility] Subjective: * Chief Complaints: * ???Follow up * HPI: ???Depression Screening:?ROLDAN-7 (2018 Edition)?Feeling nervous, anxious, or on edge?Several days,?Not being able to stop or control worrying?Several days,?Worrying too much about different things?Several days,?Trouble relaxing?Several days,?Being so restless that it is hard to sit still?Several days,?Becoming easily annoyed or irritable?Several days,?Feeling afraid as if something awful might happen?Not at all,?If you checked any problems, how difficult have they made it for you to do your work, take care of things at home, or get along with other people??Somewhat difficult,?Interpretation of Total?(5 to 9) Mild.?Mcgrann-Suicide Severity Rating Scale:?Suicide Risk (CSRS-screener)?in the past one month Have you wished you were or wished you could go to sleep and not wake up??No,?in the past one month Have you actually had any thoughts of killing yourself??No,?Have you ever done anything, started to do anything, or prepared to do anything to end your life??No.?Depression screening:?PHQ-9?Little interest or pleasure in doing things?Several days,?Feeling down, depressed, or hopeless?Several days,?Trouble falling or staying asleep, or sleeping too much?Several days,?Feeling tired or having little energy?Several days,?Poor appetite or overeating?Several days,?Feeling bad about yourself or that you are a failure, or have let yourself or your family down?Several days,?Trouble concentrating on things, such as reading the newspaper or watching television?Several days,?Moving or speaking so slowly that other people could have noticed; or the opposite, being so fidgety or restless that you have been moving around a lot more than usual?Not at all,?Thoughts that you would be better off or of hurting yourself in some way?Not at all,?Total Score?7,?Interpretation?Mild Depression.?Intervention?Depression Screening Findings?Positve,?Follow-Up for Depression?Mental health treatment assessment, Patient follow-up to return when and if necessary,?Additional Evaluation for Depression?Psychiatric interview and evaluation,?Name of the standardized tool used for adult depression screening:?Patient Health Questionnaire (PHQ-9).?History of Presenting Problem:?Anxiety?with excessive worry, with restlessness.?Depression?with decreased concentration, with decreased energy, with sad mood.?Mood lability hx irritability, racing thoughts, elevated mood, increased energy, impulsivity, increased spending.?.?Psychosis?no hx psychosis.?Suicidal ideation?denies.?Substance abuse?alcohol- relapse 03/2024. Going to AA meetings.?.?Here for follow up. Lurasidone started last apt for mood stabilization. He has not noted a significant difference since starting the medication. Reports mood as good, denies feeling overly depressed, not feeling hopeless or helpless, no suicidal ideation. Anxiety has been high due to financial stressors. Denies panic attacks.? Reports a recent relapse with alcohol, it caused a big thing between me and one of my daughters . He is currently staying in a hotel, as the daughter he is living with is not happy with him. States I dont want to drink but I just do . Denies cravings, although reports I just got the whiskey out of habit . That day he drank two pints. Reports recent health stressors (chronic pain related to knees and back) as a trigger to alcohol use. Recently found a cyst on his back, has concern over this due to history of cancer, has CT scheduled. Denies current cravings to use alcohol, last time had cravings was two weeks ago. Contacted [facility] to go through [facility].? Sleep is fair, getting about 6-7 hours nightly.? Appetite is good. ???Past Psychiatric Hospitalizations:?Previous psychiatric hospitalizations?Previous Psychiatric Hospitalization?No.?Social hx:? . 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, arthritis, high [...] psychosis, involuntary movements.?Patient complains of?anxiety, irritability, difficulty concentrating, substance abuse.?Comments?See HPI for details.? * Medical History:? * Surgical History:?Prostate r emoval s/p cancer * Hospitalization/Major Diagno stic Procedure:? * Family History:?Father: None .?Maternal Aunt: None.?Maternal Uncle: None.?Paternal Aunt: None.?Paternal Uncle: None.?Mother: None.?Paternal Grandfather: None.?Paternal Grandmother: None.?Maternal Grandmother: None.?Brother: None.?Sister: None.?Son: Bipolar Disorder.?Daughter: None.? * Social History:?Tobacco Use:?Tobacco Control (Standard)?Tobacco use:?Nonsmoker,?Additional Findings: Tobacco user?Chews tobacco.?Drug/Alcohol:?Drugs?Have you used drugs [...] your own decision-maker?Yes,?Do you have Power of Test Engineering Intern for Health or Medical??No,?Do you have a power of lieutenant ballistics for health??Yes,?Do you have power of lieutenant ballistics for Medical ??Yes,?If yes, then please bring the POA paperwork so that we can upload it.?Yes.?Social [...] NEEDED FOR INSOMNIA UNTIL FURTHER NOTICE Oral Lurasidone HCl 40 MG Tablet 1 tablet in the evening with food Orally Once a day Cyclobenzaprine HCl 10 MG Tablet TAKE 1 TABLET BY MOUTH THREE TIMES DAILY Oral traMADol HCl 50 MG Tablet TAKE 1 TABLET BY MOUTH TWICE DAILY NEEDED FOR PAIN Oral Taking Olmesartan Medoxomil 20 MG Tablet [...] FOR INSOMNIA UNTIL FURTHER NOTICE Oral Taking Lurasidone HCl 40 MG Tablet 1 tablet in the evening with food Orally Once a day Taking Cyclobenzaprine HCl 10 MG Tablet TAKE 1 TABLET BY MOUTH THREE TIMES DAILY Oral Taking traMADol HCl 50 MG Tablet TAKE 1 TABLET BY MOUTH TWICE DAILY NEEDED FOR PAIN Oral DiscontinuedJublia 10 % Solution APPLY TOPICALLY TO THE AFFECTED AREA EVERY DAY AT BEDTIME FOR 48 WEEKS External traZODone HCl 50 MG Tablet Oral Medication List reviewed and reconciled with the patientDiscontinued Jublia 10 % Solution APPLY TOPICALLY TO THE AFFECTED AREA EVERY DAY AT BEDTIME FOR 48 WEEKS External Discontinued traZODone HCl 50 MG Tablet Oral Medication List reviewed and reconciled with the patient * Allergies:?N.K.D.A.no[Allerg ies Verified] Objective: * Vitals:? * Examination: ???Psychiatry: ?Appearance:?well-groomed.?Abnormal body movements:?none.?Affect / mood:?appropriate.?Attention:?good.?Attitude:?cooperative.?Homicidal ideation:?none.?Suicidal ideation:?none.?Degree of awareness of surroundings:?within normal limits.?Delusions:?no.?Hallucinations:?no.?Insight:?good.?Judgement:?good.?Orientation:?awake, alert and oriented x 3.?Perceptual disorders:?no perceptual disorder noted.?Psychomotor activity:?within normal range.?Speech / language:?normal rate, volume, and articulation (RVR), clear and coherent, appropriate pitch/modulation.?Thought content:?appropriate.?Thought process:?intact.? Assessment: * Assessment: 1.?Bipolar 2 disorder - F31. 81 (Primary)???2.?Alcohol dependence, in remission - F10.21??? ---differential dx: ADHD, pt suspects ADHD; symptoms more consistent with bipolar disorder. Will monitor response to mood stabilizer and can re-evaluate if needed. Plan: * Treatment: 2.?Alcohol dependence, in re mission? Start Naltrexone HCl Tablet, 50 MG, 1 tablet, Orally, Once a day, 90 days, 90 Tablet, Refills 0.?? 3.?Others? Notes: Start naltrexone 50mg daily for alcohol cravings. -PDMP checked to verify no opioid medication prescribed. Patient educated on all medications including potential benefits, side effects, risks. Educated on proper dosing schedule and importance of compliance. Scheduled for intake at [facility] ?? Clinical Notes: -Assessment and treatment plan reviewed with patient. -Compliance with treatment plan importance discussed. -Discussed the risks/benefits of this medication -Discussed medication side effects. -Contact office if symptoms worsen. -Discussed that it can take up to 6-8 weeks to see full therapeutic effects of psychotropic medications. -Crisis prevention hotline 988. ?? * Procedure Codes:?88129 BEHAV ASSMT W/SCORE & DOCD/STAND [id number] VISIT COMPLEXITY INHERENT TO ONGOING CARE RELATED TO A PATIENT'S SINGLE, SERIOUS CONDITION OR A COMPLEX [id number] CLIN DEPRESSION SCREEN DOC * Follow Up:?4 Weeks (Reason: medication follow up) * Billing Information: * Visit Code:? 78515 OFFICE OUTPATIENT VISIT 25 MINUTES DETAILED HISTORY AND EXAM/MODERATE MEDICAL DECISION MAKING. * Procedure Codes:? 39198 BEHAV ASSMT W/SCORE & DOCD/STAND INSTRUMENT. G2211 VISIT COMPLEXITY INHERENT TO ONGOING CARE RELATED TO A PATIENT'S SINGLE, SERIOUS CONDITION OR A COMPLEX CONDITION. G8431 CLIN DEPRESSION SCREEN DOC. * NE DEPUTY Sign off status: Completed true * Provider:?CELE WYNNE Date:? Generated for Lia carvajal/Love/Jojo on:?04/07/2024 09:54 AM CANINE DEPUTY History and Physical Notes * HPI (History of Present Illness) Category Sub-Category Detail Notes Category Not es History of Presenting Problem Anxiety with excessive worry, with restlessness Here for follow up. Lurasidone started last apt for mood stabilization. He has not noted a significant difference since starting the medication. Reports mood as good, denies feeling overly depressed, not feeling hopeless or helpless, no suicidal ideation. Anxiety has been high due to financial stressors. Denies panic attacks. Reports a recent relapse with alcohol, it caused a big thing between me and one of my daughters . He is currently staying in a hotel, as the daughter he is living with is not happy with him. States I dont want to drink but I just do . Denies cravings, although reports I just got the whiskey out of habit . That day he drank two pints. Reports recent health stressors (chronic pain related to knees and back) as a trigger to alcohol use. Recently found a cyst on his back, has concern over this due to history of cancer, has CT scheduled. Denies current cravings to use alcohol, last time had cravings was two weeks ago. Contacted [facility] to go through IOP. Sleep is fair, getting about 6-7 hours nightly. Appetite is good. Depression with decreased erasto ntration, with decreased energy, with sad mood Substance abuse alcohol- relapse 2024. Going to AA meetings. Suicidal ideation denies Psychosis no hx psychosis Mood lability hx irritability, rac ing thoughts, elevated mood, increased energy, impulsivity, increased spending. Past Psychiatric Hospitalizations Previous psychiatric hospitalizations Previous Psychiatric Hospitalization: No Social hx: . 4 children.Currently residing with daughter. 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, arthritis, high [...] Little interest or pleasure in doing things: Several days Feeling down, depressed, or hopeless: Se veral days Trouble falling or staying asleep, or sl eeping too much: Several days Feeling tired or having little energy: S everal days Poor appetite or overeating: Several day s Feeling bad about yourself o r that you are a failure, or have let yourself or your family down: Several days Trouble concentrating on thi ngs, such as reading the newspaper or watching television: Several days Moving or speaking so slowly that other people could have noticed; or the opposite, being so fidgety or restless that you have been moving around a lot more than usual: Not at all Thoughts that you would be b ankur off or of hurting yourself in some way: Not at all Total Score: 7 Interpretation: Mild Depression Intervention Depression Screening Findings: P ositve Follow-Up for Depression: [facility] treatment assessment, Patient follow-up to return when and if necessary Additional Evaluation for Depression: Ps ychiatric interview [...] Several days Becoming easily annoyed or irritable: Se veral days Feeling afraid as if something awful donovan ht happen: Not at all If you checked any problems, how difficult have they made it for you to do your work, take care of things at home, or get along with other people?: Somewhat difficult Interpretation of Total: (5 to 9) Mild Mcgrann-Suicide Severity Rating Scale Suicide Risk (CSRS-screener) in [...]
== END 2024-04-07 09:23 | disposition home or self-care (01) ==
LOC: ANHAUDIO 09:23
PROVIDERS: PCP Nurse Practitioner Family; Visit Provider Nurse Practitioner Family
DX: H90.3 Sensorineural hearing loss, bilateral (principal)
CPT/HCPCS: 92557; 92567

== ENCOUNTER 2024-04-12 10:51 | Outpatient (CLI) | payer BC, SELFPAY ==
--- NOTE | ~2024-04-12 | CT_ITS ---
EXAMINATION: CT abdomen pelvis wo/w con DATE: 04/12/2024 11:40 INDICATION: Acquired cyst of the kidney TECHNIQUE: Computed tomography (CT) of the abdomen and pelvis was performed without intravenous contr ast. CT of the abdomen and pelvis was then performed with a total of 130 mL Omnipaque-350 intravenous contrast using a double-bolus technique for simultaneous opacification of the renal parenchyma and r enal collecting system. Automated exposure control and iterative reconstruction technique were employ ed. The dose-length product was 2296.44 mGy-cm. COMPARISON: None FINDINGS: Lung bases are clear. Heart size is normal. No pericardial or pleural effusion. Liver, gallbladder, s pleen, pancreas and bilateral adrenal glands are normal. There are prominent parapelvic cysts at both kidneys. No urolithiasis or hydronephrosis. The bilateral renal collecting systems and proximal to m id ureters are well opacified with contrast on the postcontrast imaging with no or filling defects or urothelial irregularities. The using the distal ureters are decompressed. Contrast also seen within the normal appearing bladder. Bowels including the appendix are normal. No free intraperitoneal gas o r fluid. No pathologically enlarged abdominal or pelvic lymphadenopathy. 4 mm retrolisthesis L2 on L3 . Mild lumbar levocurvature with moderate to severe spondylosis. Bilateral L5 pars interarticularis d efects. IMPRESSION: 1. Prominent parapelvic cysts at both kidneys. No hydronephrosis. Reviewed, dictated and finalized at location A. R SHOVEL OPERATOR HELPER
[2024-04-13 10:34] LABS: Estimated Glomerular Filt Rate > 60
== END 2024-04-12 10:52 | disposition home or self-care (01) ==
PROVIDERS: PCP Nurse Practitioner Family; Visit Provider Nurse Practitioner Family
DX: N28.1 Cyst of kidney, acquired (principal); N13.30 Unspecified hydronephrosis
CPT/HCPCS: 74178; Q9967

== ENCOUNTER 2024-05-31 01:06 | Day surgery (SDC) | payer BC, SELFPAY ==
[2024-05-19 13:53] VITALS: BMI 33.5
--- OUTSIDE RECORDS SUMMARY | 2024-05-31 01:09 | XMS_ITS | Patient Health Record ---
Author Organization [facility] [employer] Address [facility] [facility] [address] [place] [address] Care Team Providers Care Icing Mixer Name Role Phone Jazzy Woody Primary Care Provider Christa Meza Unavailable [phone] Allergies No Known Allergies Results Component Value Reference Range Notes UDT Reviewed date:02/24/2024 01:31:24 PM Interpretation: Performing Lab: Notes/Report: THC neg 0 - 50 ng/ml Cocaine neg 0 - 300 ng/ml Amphetamine neg 0 - 1000 ng/ml Buprenorphine (BUP) neg 0 - 10 ng/ml Secobarbital (Bar) neg 0 - 300 ng/ml Oxazepam (BZO) neg 0 - 300 ng/ml 5-sqhbkrbssn-3,4-ozxdmffv-6,3-diphenylpyrrolidine (TERE P) neg 0 - 300 ng/ml Methamphetamine (MET) neg 0 - 1000 ng/ml Methylenedioxymethamphetamine (MDMA) neg 0 - 500 ng/ml Morphine (MOP 300/EOD1914) neg 0 - 300 ng/ml Methadone (MTD) neg 0 - 300 ng/ml Phencyclidine (PCP) neg 0 - 25 ng/ml Nortriptyline (TCA) neg 0 - 1000 ng/ml Oxycodone neg 0 - 300 ng/ml x neg 0 - 300 ng/ml Reason For Referral No Information Medications Medication SIG (Take, Route, Frequency, Duration) Notes Start Date End Date Status traZODone HCl 50 MG TAKE 1 TABLET ONCE D AILY AT BEDTIME (9PM) IF NEEDED FOR INSOMNIA UNTIL FURTHER NOTICE Oral for 30 Days Active cloNIDine HCl 0.1 MG TAKE 1 TABLET EVERY 8 HOURS IF NEEDED FOR HYPERTENSION UNTIL FURTHER NOTICE; HOLD FOR BP LOWER THAN 150/80 Oral for 20 Days Active Cyclobenzaprine HCl 10 MG TAKE 1 TABLET BY MOUTH THREE TIMES DAILY Oral for 20 Days Active traMADol HCl 50 MG TAKE 1 TABLET BY N[place] TH TWICE DAILY NEEDED FOR PAIN Oral for 7 Days Active Lurasidone HCl 40 MG 1 tablet in the evening with food Orally Once a day for 90 days TAKE WITH AT LEAST 350 CALORIES Active Naltrexone HCl 50 MG 1 tablet Orally Onc e a day for 90 days Active Rosuvastatin Calcium 10 MG 1 tablet Oral ly Once a day Active Olmesartan Medoxomil 20 MG 1 tablet Oral ly Once a day Active Social History Tobacco Use: Social History [...] Risk Notes Problem Chronic alcoholism in remission (609856987) Alcohol dependence, in remission (F10.21) Active confirmed Problem Bipolar 2 disorder (39115494) Bipolar 2 disorder (F31.81) Active confirmed Problem Difficulty concentrating (R41.840) Active confirmed Vital Signs Heart Rate 101 /min 05/02/2024 Height-cm 177.8 cm 05/27/2024 Blood pressure diastolic 92 mm Hg 05/02/2024 Weight-kg 115.21 kg 05/02/2024 Height 70 in 05/27/2024 Blood pressure systolic 149 mm Hg 05/02/2024 Weight 254 lbs 05/02/2024 BMI 36.44 kg/m2 05/02/2024 Procedures Procedure Date Ordered Date Performed Result Body Sit e ADHD Testing 05/27/2024 N/A Encounters [facility] [address] [place] [address] [place] [id number] 02/24/2024 Christa Car Bipolar 2 disorder F31.81 and Alcohol dependence, in remission F10.21 [place] [address] [facility] [address] [facility] [address] [place] [address] 04/04/2024 Christa Joceline Bipolar 2 disorder F31.81 and Alcohol dependence, in remission F10.21 [place] [id number] [facility] [address] [address] 05/02/2024 Christa Joceline Alcohol dependence, in remission F10.21 ; Benign essential HTN I10 and Bipolar 2 disorder F31.81 [place] [address] [facility] [address] [address] 05/27/2024 Christajuan alberto Car Alcohol dependence, in remission F10.21 ; Encounter for screening for depression Z13.31 ; Benign essential HTN I10 ; Bipolar 2 disorder F31.81 and Difficulty concentrating R41.840 Assessments Encounter Date Diagnosis (ICD Code) Assessment [...] pt reports he is not taking consistently ---differenti al dx: ADHD, pt suspects ADHD; [...] stabilizer and can re-evaluate if needed. 02/24/2024 Alcohol dependence, in remission (ICD-10 - F10.21) Stable 1. Bipolar 2 disorder no hx diagnosis; MDQ today positive; reports family history of bipolar disorder; symptoms do not last longer than 3-4 days at a time. History of significant impulsivity (gambling, spending money, substance use). -start lurasidone 40mg daily for mood stabilization -discontinue escitalopram, pt reports he is not taking consistently ---differenti al dx: ADHD, pt suspects ADHD; symptoms more consistent with bipolar disorder. Will monitor response to mood stabilizer and can re-evaluate if needed. 2. Alcohol use disorder In remission since Dec 2023. denies cravings or impulses to drink stable off of medication; can start naltrexone if needed in the future. Order labs next apt. 05/27/2024 Alcohol dependence, in remission (ICD-10 - F10.21) 05/02/2024 Alcohol dependence, in remission (ICD-10 - F10.21) ---differenti al dx: ADHD, pt suspects ADHD; symptoms more consistent with bipolar disorder. Will monitor response to mood stabilizer and can re-evaluate if needed. 05/02/2024 Bipolar 2 disorder (ICD-10 - F31.81) Second [...] mood stabilizer and can re-evaluate if needed. 05/02/2024 Benign essential HTN (ICD-10 - I10) ---differenti al dx: ADHD, pt suspects ADHD; symptoms more consistent with bipolar disorder. Will monitor response to mood stabilizer and can re-evaluate if needed. 04/04/2024 Alcohol dependence, in remission (ICD-10 - F10.21) ---differenti al dx: ADHD, pt suspects ADHD; symptoms more consistent with bipolar disorder. Will monitor response to mood stabilizer and can re-evaluate if needed. 05/27/2024 Encounter for screening for depression (ICD-10 - Z13.31) 05/27/2024 Benign essential HTN (ICD-10 - I10) 05/27/2024 Bipolar 2 disorder (ICD-10 - F31.81) Second [...] common with first generation antipsychotics) and more. 05/27/2024 Difficulty concentrating (ICD-10 - R41.840) Pre-treatment evaluation and contraindications Before initiating treatment with a stimulant in adults, we review their cardiovascular history, including chest pain, palpitations, syncope, myocardial infarction, arrhythmia, valvular disease, and family history. We measure blood pressure and pulse in all patients and obtain an electrocardiogram (ECG) in individuals with cardiac history or cardiac symptoms such as palpitations or chest pain. In individuals with a cardiac history, or when findings outside normal limits are seen, we consult a gwot ia[employer]ilo intelligence support to determine whether the results are sufficiently severe to avoid these medications. We also rule out ALTHEA; if you are using cannabis, are heavy alcohol, or are using other street drugs and have a history of ALTHEA, than we consider non-stimulant treatment. We also do routine and random UDT If you refuse or fail to give urine for urine, then we will not prescribe controlled substances. If your urine comes positive for medicine (which are not prescribed to you) and illicit drugs (including Cannabis) then we will not prescribe a controlled substance There is a charge for Stimulant refills 02/24/2024 Other Start luradisone 40mg daily. -educated [...] pt reports he is not taking consistently ---differenti al dx: ADHD, pt suspects ADHD; [...] importance of compliance. Scheduled for intake at [facility] -Assessment and treatment plan reviewed with patient. -Compliance with treatment plan importance discussed. -Discussed the risks/benefits of this medication -Discussed medication side effects. -Contact office if symptoms worsen. -Discussed that it can take up to 6-8 weeks to see full therapeutic effects of psychotropic medications. -Crisis prevention hotline 988. ---differenti al dx: ADHD, pt suspects ADHD; symptoms more consistent with bipolar disorder. Will monitor response to mood stabilizer and can re-evaluate if needed. 05/02/2024 Other Stable, continue current medications. Patient educated on all medications including potential benefits, side effects, risks. Educated on proper dosing schedule and importance of compliance. Continue [facility] -Assessment and treatment plan reviewed with patient. -Compliance with treatment plan importance discussed. -Discussed the risks/benefits of this medication -Discussed medication side effects. -Contact office if symptoms worsen. -Discussed that it can take up to 6-8 weeks to see full therapeutic effects of psychotropic medications. -Crisis prevention hotline 988. ---differenti al dx: ADHD, pt suspects ADHD; symptoms more consistent with bipolar disorder. Will monitor response to mood stabilizer and can re-evaluate if needed. 05/27/2024 Other Continue current medications. -refills sent in Patient educated on all medications including potential benefits, side effects, risks. Educated on proper dosing schedule and importance of compliance. Schedule for ADHD evaluation to rule in or rule out diagnosis. -Assessment and treatment plan reviewed with patient. -Compliance with treatment plan importance discussed. -Discussed the risks/benefits of this medication -Discussed medication side effects. -Contact office if symptoms worsen. -Discussed that it can take up to 6-8 weeks to see full therapeutic effects of psychotropic medications. -Crisis prevention hotline 988. Plan Of Treatment Pending Test Test Name Order Date ADHD Testing 05/27/2024 Next Appt Details Provider Name:Jcarlos Orona , 06/01/2024 02:00:00 PM, [address], [facility] [address], [place], [address], Provider Name:Christa Car, 06/06/2024 10:15:00 AM, [address], [address], [place], [address], Insurance Providers Payer Name Payer Address Payer Phone Subscriber Number Group Number Insured Name Patient Relationship to Insured Coverage Start Date Coverage End Date [facility] [address] [place] [phone] [id number] SANDIE ROMANO Self - patient is the [...]
--- OUTSIDE RECORDS SUMMARY | 2024-05-31 01:09 | XMS_ITS ---
Author Organization [facility] As UTILICASE Address [address] [facility] [address] [place] [address] Care Team Providers Care Market Research Consultant Name Role Phone Jazzy Woody Primary Care Provider Birgit Christa Alarcon Unavailable [phone] Allergies No Known Allergies REASON FOR VISIT follow-up, Depression screening negative Medications Medication SIG (Take, Route, Frequency, Duration) [...] TIMES DAILY Oral for 20 Days Active Rosuvastatin Calcium 10 MG 1 tablet Oral ly Once a day Active Olmesartan Medoxomil 20 MG 1 tablet Oral ly Once a day Active traMADol HCl 50 MG TAKE 1 TABLET BY [place] TH TWICE DAILY NEEDED FOR PAIN Oral for 7 Days Active Lurasidone HCl 40 MG 1 tablet in the evening with food Orally Once a day for 90 days TAKE WITH AT LEAST 350 CALORIES Active Naltrexone HCl 50 MG 1 tablet Orally Onc e a day for 90 days Active Social [...] Problem Status W/U Status Risk Notes Problem Difficulty concentrating (R41.840) Active confirmed Vital Signs Height 70 in 05/27/2024 Height-cm 177.8 cm 05/27/2024 Procedures Procedure Date Ordered Date Performed Result Body Sit e ADHD Testing 05/27/2024 N/A Encounters Encounter Location Date Provider [facility] [address] [facility] [address] [place] [address] 05/27/2024 Christa Joceline Alcohol dependence, in remission F10.21 ; Encounter for screening for depression Z13.31 ; Benign essential HTN I10 ; Bipolar 2 disorder F31.81 and Difficulty concentrating R41.840 Assessments Encounter Date Diagnosis (ICD Code) Assessment Notes Treatment Notes Treatment Clinical Notes Section Notes 05/27/2024 Alcohol dependence, in remission (ICD-10 - F10.21) 05/27/2024 Encounter for screening for depression (ICD-10 [...] normal limits are seen, we consult a rpg programmer to determine whether the results are sufficiently [...] There is a charge for Stimulant refills 05/27/2024 Other Continue current medications. -refills sent [...] -Crisis prevention hotline 988. Plan Of Treatment Medication Medication Name Sig Start Date Stop Date Notes Lurasidone HCl 40 MG 1 tablet in the raymundo juan antonio with food Orally Once a day for 90 days Naltrexone HCl 50 MG 1 tablet Orally Onc e a day for 90 days Treatment Notes [...] common with first generation antipsychotics) and more. Difficulty concentrating Pre-treatment evaluation and contraindications Before initiating treatment [...] normal limits are seen, we consult a rpg programmer to determine whether the results are sufficiently [...] There is a charge for Stimulant refills Other Continue current medications. -refills sent in Patient educated on all medications including potential benefits, side effects, risks. Educated on proper dosing schedule and importance of compliance. Schedule for ADHD evaluation to rule in or rule out diagnosis. Pending Test Test Name Order Date ADHD Testing 05/27/2024 Next Appt Details Follow Up: after adhd evel, Reason: Provider Name:Jcarlos Orona , 06/01/2024 02:00:00 PM, [address], [address], [address], Provider Name:Christa Car, 06/06/2024 10:15:00 AM, [address], [place] [address], [place], [address], Progress Notes * SANDIE ROMANODOB:1965 (59 yo M)Acc No.[id number]:05/27/2024 Patient: Marcello MILLER SANDIE Provider: CELE ARIAS :1965 A ge:59 Y S ex:Male Date:05/27/2024 Phone: [facility] [facility] [facility] Pcp:Jazzy Newell [facility] Subjective: * Chief Complaints: * F ollow-upDepression screening negative * HPI: D epression screening: PHQ-9 L ittle interest or pleasure in doing things?Several days F eeling down, depressed, or hopeless S everal days T rouble falling or staying asleep, or sleeping too much S everal days F eeling tired or having little energy S everal P oor appetite or overeating S everal F eeling bad about yourself or that you are a failure, or have let yourself or your family down S everal T rouble concentrating on things, such as reading the newspaper or watching television M ore than half the days M oving or speaking so slowly that other people could have noticed; or the opposite, being so fidgety or restless that you have been moving around a lot more than usual S everal T houghts that you would be better off or of hurting yourself in some way N ot at all T otal Score 9 I nterpretation M ild Depression Intervention D epression Screening Findings P ositve F ollow-Up for Depression M ental health care assessment, Mental health care management, Mental health screening assessment, Mental health screening education S uicide Risk Assessment Performed _ H istory of Presenting Problem: Anxiety w ith excessive worry, with restlessness. Depression w ith decreased concentration, with decreased energy, with sad mood. Mood lability h x irritability, racing thoughts, elevated mood, increased energy, impulsivity, increased spending. . Psychosis n o hx psychosis. Suicidal ideation d enies. Substance abuse a lcohol- once every couple of weeks. less than a pint each time. . ADHD f ails to give close attention to details or makes careless mistakes in schoolwork, work, or other activities, has difficulty sustaining attention in tasks or play activity, forgetful in daily activities, easily distracted by extraneous stimuli, avoids, dislikes, or is reluctant to engage in tasks that require sustained mental effort. Here for follow up. No medication changes made last apt. Reports he is concerned over ADHD symptoms- reports procrastination, difficulty initiating and completing tasks, gets overwhelmed easily. Reports symptoms have not improved since treating the bipolar disorder. States he has never been diagnosed, but remembers having symptoms as early as high school years. Currently, mood is it is either good or down in the dumps . Has had a few days that he has just laid in bed and not done anything. Feels he is having more good days than bad days. A lcohol use has decreased, once every two weeks. Denies significantly cravings to drink. He is stressed over finances, I really have to get a job . Relationship with daughter is improving, moved back in with her last week. Sleep is fair, getting about 6-7 hours nightly. Energy is fair. P ast Psychiatric Hospitalizations: Previous psychiatric hospitalizations P revious Psychiatric Hospitalization N o Social hx: . 4 children.Currently residing with daughter. 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, arthritis, high cholesterol, HTN, prostate cancer-removed 2022. Legal hx: [employer] 2022 Past psychiatric hx- Hx ECT/TMS/esketamine: none Past [facility] admissions/IOP/PHP: none Previous suicide attempts: denies Previous self-harming: denies Family psychiatric hx: son-bipolar, ADHD Previous medications: escitalopram Supplements: none Substance use hx: none Nicotine: chew tobacco Alcohol: Sober since December 2023. * ROS: G eneral / Constitutional: Patient denies c hange in appetite, headache, lightheadedness, sleep disturbance, weight gain, weight loss. C ardiovascular: Patient denies p alpitations. G astrointestinal: Patient denies n ausea, vomiting, constipation. ? N eurologic: Patient denies c onfusion, tic, tremor. P sychiatric: Patient denies a uditory / visual hallucinations, delusions, suicidal thoughts, psychosis, involuntary movements. P atient complains of a nxiety, irritability, difficulty concentrating, substance abuse. C yi S [facility] for details. ? P atient not eligible due to active diagnosis of hypertension: G 9744. * Medical History: * Surgical History: P rostate removal s/p cancer * Hospitalization/Major Diagno stic Procedure: * Family History: F ather: None. M aternal Aunt: None. M aternal Uncle: None. P aternal Aunt: None.?Paternal Uncle: None. M other: None. P aternal Grandfather: None. P aternal Grandmother: None. M aternal Grandmother: None. B rother: None. S ister: None. S on: Bipolar Disorder. D aughter: None. * Social History: T obacco Use: T obacco Control (Standard) T obacco use: N onsmoker A dditional Findings: Tobacco user C hews tobacco D rug/Alcohol: D rugs H ave you used drugs other than those for medical reasons in the past 12 months? N o AUDIT-C (Standard) D id you have a drink containing alcohol in the past year? Y es H ow often did you have six or more drinks on one occasion in the past year? 4 or more times a week (4 points) H ow many drinks did you have on a typical day when you were drinking in the past year? 5 or 6 drinks (2 points) H ow often did you have a drink containing alcohol in the past year? D aily or almost daily (4 points) M iscellaneous: O ccupation: Retired. Safety issues A re there any firearms in the house? N o Advance Care Planning A re you your own decision-maker Y es D o you have Power of Tax Accounting Manager for Health or Medical? N o D o you have a power of patent prosecution attorney for health??Yes D o you have power of patent prosecution attorney for Medical ??Yes I f yes, then please bring the POA paperwork so that we can upload it. Y es S ocial History: H ousehold M arital Status: M arried N umber of Adults in household: 2 N umber of Children in Household: 0 L evel of Education: [employer] * Medications: T akingOlmesartan Medoxomil 20 MG Tablet 1 tablet Orally [...] NEEDED FOR INSOMNIA UNTIL FURTHER NOTICE Oral Cyclobenzaprine HCl 10 MG Tablet TAKE 1 TABLET BY MOUTH THREE TIMES DAILY Oral traMADol HCl 50 MG Tablet TAKE 1 TABLET BY MOUTH TWICE DAILY NEEDED FOR PAIN Oral Lurasidone HCl 40 MG Tablet 1 tablet in the evening with food Orally Once a day Naltrexone HCl 50 MG Tablet 1 tablet Orally Once a day Medication List reviewed and reconciled with the patientTaking Olmesartan Medoxomil 20 MG Tablet 1 tablet [...] FOR INSOMNIA UNTIL FURTHER NOTICE Oral Taking Cyclobenzaprine HCl 10 MG Tablet TAKE 1 TABLET BY MOUTH THREE TIMES DAILY Oral Taking traMADol HCl 50 MG Tablet TAKE 1 TABLET BY MOUTH TWICE DAILY NEEDED FOR PAIN Oral Taking Lurasidone HCl 40 MG Tablet 1 tablet in the evening with food Orally Once a day Taking Naltrexone HCl 50 MG Tablet 1 tablet Orally Once a day Medication List reviewed and reconciled with the patient * Allergies: N .K.D.A.no[Allergies Verified] Objective: * Vitals: H t: 70 in, Ht-cm: 177.8 cm. * Examination: P sychiatry: Appearance: w ell-groomed. Abnormal body movements: n one. Affect / mood: a ppropriate. Attention: g ood. Attitude: c ooperative. Homicidal ideation: n one. Suicidal ideation: n one. Degree of awareness of surroundings: w ithin normal limits.? Delusions: n o. Hallucinations: n o. Insight: g ood. Judgement: g ood. Orientation: a wake, alert and oriented x 3. Perceptual disorders: n o perceptual disorder noted. Psychomotor activity: w ithin normal range. Speech / language: n ormal rate, volume, and articulation (RVR), clear and coherent, appropriate pitch/modulation. Thought content: a ppropriate. Thought process: i ntact. Assessment: * Assessment: 1. B ipolar 2 disorder - F31.81 (Primary) 2 . A lcohol dependence, in remission - F10.21 3 . E ncounter for screening for depression - Z13.31 ?4. B enign essential HTN - I10 5 . D ifficulty concentrating - R41.840? Plan: * Treatment: 2. A lcohol dependence, in remission Continue Naltrexone HCl Tablet, 50 MG, 1 tablet, Orally, Once a day, 90 days, 90 Tablet, Refills 0.? 3. D ifficulty concentrating P rocedure: ADHD Testing Notes: Pre-treatment evaluation and contraindications Before initiating treatment [...] normal limits are seen, we consult a rpg programmer to determine whether the results are sufficiently [...] There is a charge for Stimulant refills 4. O thers Notes: Continue current medications. -refills sent in Patient educated on all medications including potential benefits, side effects, risks. Educated on proper dosing schedule and importance of compliance. Schedule for ADHD evaluation to rule in or rule out diagnosis. Clinical Notes: -Assessment and treatment plan reviewed with patient. -Compliance with treatment plan importance discussed. -Discussed the risks/benefits of this medication -Discussed medication side effects. -Contact office if symptoms worsen. -Discussed that it can take up to 6-8 weeks to see full therapeutic effects of psychotropic medications. -Crisis prevention hotline 767. * Procedure Codes: 9 6127 BEHAV ASSMT W/SCORE & DOCD/STAND [id number] CLIN DEPRESSION SCREEN [id number] VISIT COMPLEXITY INHERENT TO ONGOING CARE RELATED TO A PATIENT'S SINGLE, SERIOUS CONDITION OR A COMPLEX CONDITION * Follow Up: a fter adhd evel * Billing Information: * Visit Code: 35219 OFFICE OUTPATIENT VISIT 25 MINUTES DETAILED HISTORY AND EXAM/MODERATE MEDICAL DECISION MAKING. * Procedure Codes: 56129 BEHAV ASSMT W/SCORE & DOCD/STAND INSTRUMENT. G8431 CLIN DEPRESSION SCREEN DOC. G2211 VISIT COMPLEXITY INHERENT TO ONGOING CARE RELATED TO A PATIENT'S SINGLE, SERIOUS CONDITION OR A COMPLEX CONDITION. * Sign off status: Completed true * Provider: CELE ARIAS Date: 05/27/2024 Generated for Lia carvajal/Love/Shikhasmitting on: 0 05/31/2024 01:09 AM CDT History and Physical Notes * HPI (History of Present Illness) Category Sub-Category Detail Notes Category Not es History of Presenting Problem Anxiety with excessive worry, with restlessness Here for follow up. No medication changes made last apt. Reports he is concerned over ADHD symptoms- reports procrastination, difficulty initiating and completing tasks, gets overwhelmed easily. Reports symptoms have not improved since treating the bipolar disorder. States he has never been diagnosed, but remembers having symptoms as early as high school years. Currently, mood is it is either good or down in the dumps . Has had a few days that he has just laid in bed and not done anything. Feels he is having more good days than bad days. Alcohol use has decreased, once every two weeks. Denies significantly cravings to drink. He is stressed over finances, I really have to get a job . Relationship with daughter is improving, moved back in with her last week. Sleep is fair, getting about 6-7 hours nightly. Energy is fair. Depression with decreased erasto ntration, with decreased energy, with sad mood Substance abuse alcohol- once every couple of weeks. less than a pint each time. Suicidal ideation denies Psychosis no hx psychosis Mood lability hx irritability, rac ing thoughts, elevated mood, increased energy, impulsivity, increased spending. ADHD fails to give close attention to details or makes careless mistakes in schoolwork, work, or other activities, has difficulty sustaining attention in tasks or play activity, forgetful in daily activities, easily distracted by extraneous stimuli, avoids, dislikes, or is reluctant to engage in tasks that require sustained mental effort Past Psychiatric Hospitalizations Previous psychiatric hospitalizations Previous Psychiatric Hospitalization: No Social hx: . 4 children.Currently residing with daughter. 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
--- OUTSIDE RECORDS SUMMARY | 2024-05-31 01:09 | XMS_ITS ---
Author Organization [facility] [email or web address] Address [address] [facility] [address] [place] [address] Care Team Providers Care Masonry Teacher Name Role Phone Jazzy Woody Primary Care Provider Birgit Christa Alarcon Unavailable [phone] Allergies No Known Allergies REASON FOR VISIT Confirmed, Depression screening positive, MIPS diagnosis of HTN, Follow up psychological reason Medications Medication SIG (Take, Route, Frequency, Duration) Notes Start Date End Date Status traMADol HCl 50 MG TAKE 1 TABLET BY NADEEM TH TWICE DAILY NEEDED FOR PAIN Oral for 7 Days Active Naltrexone HCl 50 MG 1 tablet Orally Onc e a day for 90 days Active Rosuvastatin Calcium 10 MG 1 tablet Oral ly Once a day Active cloNIDine HCl 0.1 MG TAKE 1 TABLET EVERY 8 HOURS IF NEEDED FOR HYPERTENSION UNTIL FURTHER NOTICE; HOLD FOR BP LOWER THAN 150/80 Oral for 20 Days Active Olmesartan Medoxomil 20 MG 1 tablet Oral ly Once a day Active Cyclobenzaprine HCl 10 MG TAKE 1 TABLET BY MOUTH THREE TIMES DAILY Oral for 20 Days Active Lurasidone HCl 40 MG 1 tablet in the raymundo juan antonio with food Orally Once a day for 90 days Active traZODone HCl 50 MG TAKE 1 TABLET ONCE D AILY AT BEDTIME (9PM) IF NEEDED FOR INSOMNIA UNTIL FURTHER NOTICE Oral for 30 Days Active Social History Tobacco Use: Social [...] year? Daily or almost daily (4 points) Vital Signs Blood pressure systolic 149 mm Hg 05/02/19 25 Blood pressure diastolic 92 mm Hg 025 Heart Rate 101 /min 05/02/2024 Weight 254 lbs 05/02/2024 Weight-kg 115.21 kg 05/02/2024 Height 70 in 05/02/2024 Height-cm 177.8 cm 05/02/2024 BMI 36.44 kg/m2 05/02/2024 Encounters Encounter Location Date Provider Diagnosis [facility] [address] [place] [address] 05/02/2024 Christa Car Alcohol dependence, in remission F10.21 ; Benign essential HTN I10 and Bipolar 2 disorder F31.81 Assessments Encounter Date Diagnosis (ICD Code) Assessment Notes Treatment Notes Treatment Clinical Notes Section Notes 05/02/2024 Alcohol dependence, in remission (ICD-10 - [...] dosing schedule and importance of compliance. [facility] -Assessment and treatment plan reviewed with patient. -Compliance with treatment plan importance discussed. -Discussed the risks/benefits of this medication -Discussed medication side effects. -Contact office if symptoms worsen. -Discussed that it can take up to 6-8 weeks to see full therapeutic effects of psychotropic medications. -Crisis prevention hotline 035. ---differenti al dx: ADHD, pt suspects ADHD; symptoms more consistent with bipolar disorder. Will monitor response to mood stabilizer and can re-evaluate if needed. Plan Of Treatment Medication Medication Name Sig Start Date Stop Date Notes Naltrexone HCl 50 MG 1 tablet Orally Onc e a day for 90 days Lurasidone HCl 40 MG 1 tablet in [...] with first generation antipsychotics) and more. Other Stable, continue current medications. Patient educated on all medications including potential benefits, side effects, risks. Educated on proper dosing schedule and importance of compliance. [facility] Next Appt Details Follow Up: 4 Weeks, Reason: medication follow up Provider Name:Jcarlos Orona , 06/01/2024 02:00:00 PM, [address], [place] [address], [place], [address], Provider Name:Christa K Joceline, 06/06/2024 10:15:00 AM, [address], [facility] [address], [place], [address], Progress Notes * SANDIE ROMANODOB:1965 (59 yo M)Acc No.[id number]:05/02/2024 Patient: SANDIE LAUREANO Provider: YOVANY ARIASHNP :1965 A ge:59 Y S ex:Male Date:05/02/2024 Phone: Address:[address] [place], [place] [phone] Pcp:Jazzy Newell [facility] Subjective: * Chief Complaints: * C onfirmedDepression screening positiveMIPS diagnosis of HTNFollow up psychological reason * HPI: D epression Screening: ROLDAN-7 (2018 Edition) F eeling nervous, anxious, or on edge S everal days N ot being able to stop or control worrying?Several days W orrying too much about different things S everal days T rouble relaxing S everal days B eing so restless that it is hard to sit still S everal days B ecoming easily annoyed or irritable S everal days F eeling afraid as if something awful might happen N ot at all [place]-Suicide Severity Rating Scale: Suicide Risk (CSRS-screener) i n the past one month Have you wished you were or wished you could go to sleep and not wake up? N o i n the past one month Have you actually had any thoughts of killing yourself? N o H ave you ever done anything, started to do anything, or prepared to do anything to end your life? N o D epression screening: PHQ-9 L ittle interest or pleasure in doing things?Several days F eeling down, depressed, or hopeless S everal days T rouble falling or staying asleep, or sleeping too much S everal days F eeling tired or having little energy S everal days P oor appetite or overeating S everal days F eeling bad about yourself or that you are a failure, or have let yourself or your family down N ot at all T rouble concentrating on things, such as reading the newspaper or watching television N ot at all M oving or speaking so slowly that other people could have noticed; or the opposite, being so fidgety or restless that you have been moving around a lot more than usual N ot at all T houghts that you would be better off or of hurting yourself in some way N ot at all T otal Score 5 I nterpretation M ild Depression Intervention D epression Screening Findings P ositve F ollow-Up for Depression M [facility] health treatment assessment, Patient follow-up to return when and if necessary S uicide Risk Assessment Performed _ A dditional Evaluation for Depression P sychiatric interview and evaluation N heidy of the standardized tool used for adult depression screening: P atient Health Questionnaire (PHQ-9) H istory of Presenting Problem: Anxiety w ith excessive worry, with restlessness. Depression w ith decreased concentration, with decreased energy, with sad mood. Mood lability h x irritability, racing thoughts, elevated mood, increased energy, impulsivity, increased spending. . Psychosis n o hx psychosis. Suicidal ideation d enies. Substance abuse a lcohol- couple of times weekly. less than a pint each time. . Here for follow up. Naltrexone started last apt. Identifies recent stressors, [id number] fell and broke her hip, son-in-law's father . Continues to report drinking a couple of times weekly, less than a pint each time. He has been taking the naltrexone, unsure if it is helpful. Seems to be utilizing alcohol as a coping mechanism; it doesn't even taste good I just do it . He got offered a job at [employer], although it is in [place] and unsure if he will take it. He has been going to [facility] daily, has 5 more sessions remaining in the program. Sleep is fair, getting about 5-6 hours nightly. Appetite is good. P ast Psychiatric Hospitalizations: Previous psychiatric hospitalizations P revious Psychiatric Hospitalization N o Social hx: . 4 children.Currently residing with daughter. 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 [facility] for details. ? P atient not eligible due to active diagnosis of hypertension: Oli 9744. * Medical History: * Surgical History: P rostate removal s/p cancer * Hospitalization/Major Diagno stic Procedure: * Family History: F ather: None. M aternal Aunt: None. M aternal Uncle: None. P aternal Aunt: None.?Paternal Uncle: None. M other: None. P aternal Grandfather: None. P aternal Grandmother: None. M aternal Grandmother: None. B rother: None. S ister: None. S on: Bipolar Disorder. D jamee: None. * Social History: T obacco Use: [...] es D o you have Power of Jewelry Casting Model Maker for Health or Medical? N o D o you have a power of insurance defense attorney for health??Yes D o you have power of insurance defense attorney for Medical ??Yes I f yes, then please bring the POA paperwork so that we can upload it. Y es S ocial History: H pérez Armendariz arital Status: M arried N umber of Adults in household: 2 N umber of Children in Household: 0 L evel of Education: [employer] * Medications: T akingLurasidone HCl 40 MG Tablet 1 tablet in the evening with food Orally Once a day Naltrexone HCl 50 MG Tablet 1 tablet Orally Once a day , stop date 07/03/2024Olmesartan Medoxomil 20 MG Tablet 1 tablet Orally [...] MOUTH TWICE DAILY NEEDED FOR PAIN Oral Medication List reviewed and reconciled with the patientTaking Lurasidone HCl 40 MG Tablet 1 tablet in the evening with food Orally Once a day Taking Naltrexone HCl 50 MG Tablet 1 tablet Orally Once a day , stop date 07/03/2024Taking Olmesartan Medoxomil 20 MG Tablet 1 tablet [...] MOUTH TWICE DAILY NEEDED FOR PAIN Oral Medication List reviewed and reconciled with the patient * Allergies: N .K.D.A.no[Allergies Verified] Objective: * Vitals: B P:149/92mm Hg, HR:101/min, Wt:254lbs, Wt-k.21 kg, Ht: 70 in, Ht-cm: 177.8 cm, BMI:36.44Index, Body Surface Area: 2.38. * Examination: P sychiatry: Appearance: w ell-groomed. [...] dependence, in remission - F10.21 3 . B enign essential HTN - I10 ---differential dx: ADHD, pt suspects ADHD; symptoms more consistent with bipolar disorder. Will monitor response to mood stabilizer and can re-evaluate if needed. Plan: * Treatment: 2. A lcohol dependence, in remission Continue Naltrexone HCl Tablet, 50 MG, 1 tablet, Orally, Once a day, 90 days, 90 Tablet, Refills 0.? 3. O thers Notes: Stable, continue current medications. Patient educated on all medications including potential benefits, side effects, risks. Educated on proper dosing schedule and importance of compliance. [facility] Clinical Notes: -Assessment and treatment plan reviewed with patient. -Compliance with treatment plan importance discussed. -Discussed the risks/benefits of this medication -Discussed medication side effects. -Contact office if symptoms worsen. -Discussed that it can take up to 6-8 weeks to see full therapeutic effects of psychotropic medications. -Crisis prevention hotline 988. * Procedure Codes: 9 6127 BEHAV ASSMT W/SCORE & DOCD/STAND [id number] Pt not yi d/t act dig [id number] CLIN DEPRESSION SCREEN [id number] VISIT COMPLEXITY INHERENT TO ONGOING CARE RELATED TO A PATIENT'S SINGLE, SERIOUS CONDITION OR A COMPLEX CONDITION * Follow Up: 4 Weeks (Reason: medication follow up) * Billing Information: * Visit Code: 54271 OFFICE OUTPATIENT VISIT 25 MINUTES DETAILED HISTORY AND EXAM/MODERATE MEDICAL DECISION MAKING. * Procedure Codes: 78531 BEHAV ASSMT W/SCORE & DOCD/STAND INSTRUMENT. G9744 Pt not iy d/t act dig htn. G8431 CLIN DEPRESSION SCREEN DOC. G2211 VISIT COMPLEXITY INHERENT TO ONGOING CARE RELATED TO A PATIENT'S SINGLE, SERIOUS CONDITION OR A COMPLEX CONDITION. * R PRINT INSPECTOR Sign off status: Completed true * Provider: CELE ARIAS Date: 0 05/02/2024 Generated for Lia carvajal/Love/Shikhasmitting on: 0 05/31/2024 01:09 AM CDT History and Physical Notes * HPI (History of Present Illness) Category Sub-Category Detail Notes Category Not es History of Presenting Problem Anxiety with excessive worry, with restlessness Here for follow up. Naltrexone started last apt. Identifies recent stressors, [id number] fell and broke her hip, son-in-law's father . Continues to report drinking a couple of times weekly, less than a pint each time. He has been taking the naltrexone, unsure if it is helpful. Seems to be utilizing alcohol as a coping mechanism; it doesn't even taste good I just do it . He got offered a job at [employer], although it is in [place] and unsure if he will take it. He has been going to [facility] daily, has 5 more sessions remaining in the program. Sleep is fair, getting about 5-6 hours nightly. Appetite is good. Depression with decreased erasto ntration, with decreased energy, with sad mood Substance abuse alcohol- couple of t imes weekly. less than a pint each time. Suicidal ideation denies Psychosis no hx psychosis Mood lability hx irritability, rac ing thoughts, elevated mood, increased energy, impulsivity, increased spending. Past Psychiatric Hospitalizations Previous psychiatric hospitalizations Previous Psychiatric Hospitalization: No Social hx: . 4 children.Currently residing with daughter. 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 [...] have let yourself or your family down: Not at all Trouble concentrating on thi ngs, such as reading the newspaper or watching television: Not at all Moving or speaking so slowly that other people could have noticed; or the opposite, being so fidgety or restless that you have been moving around a lot more than usual: Not at all Thoughts that you would be b ankur off or of hurting yourself in some way: Not at all Total Score: 5 Interpretation: Mild Depression Intervention Depression Screening Findings: P ositve Follow-Up for Depression: [facility] treatment assessment, Patient follow-up to return when and if necessary Suicide Risk Assessment Performed: Additional Evaluation for Depression: Ps ychiatric interview [...] awful donovan ht happen: Not at all [place]-Suicide Severity Rating Scale Suicide Risk (CSRS-screener) in the past one month Have you wished you were or wished you could go to sleep and not wake up?: No in the past one month Have y ou actually had any thoughts of killing yourself?: No Have you ever done anything, started to do [...]
--- OUTSIDE RECORDS SUMMARY | 2024-05-31 01:10 | XMS_ITS | Data Portability ---
Author Organization [place] - [facility], [facility] Address [address] [place] [address] Assessment No assessment recorded. Plan of Treatment [...] By Organization Details Last Modified Time 01/22/2024 [id number] A healthy lifestyle: care instructions [email or web address] Not available 01/22/2024 15:41:14 Thank you for visiting [facility]. We may be calling you to review your lab results or schedule a follow up appointment. The call will be through an automated system which asks you to press a montez to speak with one of our agents. Please be on the lookout for this call and listen to the message in its entirety. You may also view your lab results using the [employer] kayla, available in the Kayla Store and [employer]. First-time kayla users will need to create an account; please note you ll need to select a login and password for the kayla versus just using your patient portal login. Your lab results will be posted to the [employer] kayla as soon as they re available. Need a note to excuse you from work or school? You can submit a request online at [email or web address] We will respond to your request within 2 business days If you have any questions regarding your visit, our Aftercare department can be reached at [phone]. Our hours are Thursday from 8 am 11 pm or Thursday/Thursday from 9a 8p. [email or web address] Not available 01/22/2024 15:18:08 Reason for Referral None Reported. Problems Name Problem SNOMED Code Status Onset Date Resolution Date Notes Provider Name and Address Organization Details Recorded Time Dyslipidemia 494879011 Active 2023 [place], [place] - .[facility] 15:27:44 Gout 06871477 Active 2023 [place], [place] - [facility] 15:27:47 Hypertensive disorder 82648849 Active 2023 [place], [place] - [facility] 15:27:55 Arthritis 7697861 Active 2023 [place], [place] - [facility] 15:28:03 Problem Notes None recorded. Medical Equipment [...] Updated DateTime 01/22/2024 180.34 cm 31.9 kg/m2 565550.65 g [facility] - [facility] 01/22/2024 15:29:41 Date Recorded Heart rate Body temperature Respiratory rate Oxygen saturation Oxygen saturation in Arterial blood by Pulse oximetry Systolic blood pressure Diastolic blood pressure Provider Name and Address Organization Details Last Updated DateTime 71 /min 97.9 [degF] 16 /min 97 % 97 % 135 mm[Hg] 80 mm[Hg] Melani Isabel [place] - [facility] 15:31:27 Social History None recorded. Functional Status None recorded. Mental Status None recorded. Family History Nothing Reported. Medical History No medical history recorded. Past Encounters Encounter ID Performer Location Encounter Start Date Encounter Closed Date Diagnosis/Indication Diagnosis SNOMED-CT Code Diagnosis ICD10 Code Diagnosis Note [id number] Milana ORDOÑEZ [facility] [place] [address] [place] [address] 01/22/2024 15:00:09 01/22/2024 15:36:50 History and physical examination, pre-employment 676357768 Z02.1 Health Concerns Section Related Observation LastModified by Organization Detai ls LastModified Time None Recorded Concern Status LastModified by Organization Details LastModified Time None Recorded Advance Directives Directive None Recorded Payers Encounter Date Sequence Insurance Name Policy Number Policy Bruner Covered Member ID Bruner Member ID Guarantor Name 01/22/2024 1 [place] [id number] Toni Camarillo [id number] Toni Camarillo Notes Date Note Type Note Provider Name and Address Organization Details Recorded Time 4 text/html .[facility] - Physical ExamReported bypatient.source of patient informationpatient Patient presents for an employment physicalPre-Employment Patient presents for pre-employment physical exam Milana ORDOÑEZ [address] [place], [address], [facility] - .[facility] 01/22/2024 15:41:25
--- OUTSIDE RECORDS SUMMARY | 2024-05-31 01:10 | XMS_ITS ---
Author Organization [facility] [employer] Address [address] [facility] [address] [place] [address] Care Team Providers Care Chief Engineer Drilling And Recovery Name Role Phone Jazzy Woody Primary Care Provider Birgit Christa Alarcon Unavailable [phone] Allergies No Known Allergies REASON FOR VISIT [...] points) Encounters Encounter Location Date Provider Diagnosis [facility] [employer] [facility] [address] [address] 04/04/2024 Christa Car Bipolar 2 disorder F31.81 [...] importance of compliance. Scheduled for intake at [facility] -Assessment and treatment plan reviewed with patient. -Compliance with treatment plan importance discussed. -Discussed the risks/benefits of this medication -Discussed medication side effects. -Contact office if symptoms worsen. -Discussed that it can take up to 6-8 weeks to see full therapeutic effects of psychotropic medications. -Crisis prevention hotline 168. ---vani al dx: ADHD, pt suspects ADHD; symptoms [...] importance of compliance. Scheduled for intake at [facility] Next Appt Details Follow Up: 4 Weeks, Reason: medication follow up Provider Name:Jcarlos Orona , 06/01/2024 02:00:00 PM, [address], [facility] [address], [place], [address], Provider Name:Christa Car, 06/06/2024 10:15:00 AM, [address], [address], [place], [address], Progress Notes * KATI ROMANO:1965 (58 yo M)Acc No.[id number]:04/04/2024 Patient: SANDIE LAUREANO Provider: YOVANY ARIASHNP :1965 A ge:58 Y S ex:Male Date:04/04/2024 Phone: Address:[address] [place], [place] [address] Pcp:Jazzy Newell [facility]- Subjective: * Chief Complaints: * F ollow up * HPI: D epression Screening: ROLDAN-7 (2018 Edition) F eeling nervous, anxious, or on edge?Several days, N ot being able to stop or control worrying S everal days, W orrying too much about different things S everal days, T rouble relaxing S everal days, B eing so restless that it is hard to sit still S everal days, B ecoming easily annoyed or irritable S everal days, F eeling afraid as if something awful might happen N ot at all, I f you checked any problems, how difficult have they made it for you to do your work, take care of things at home, or get along with other people? S omewhat difficult, I nterpretation of Total ( 5 to 9) Mild. C [place]-Suicide Severity Rating Scale: Suicide Risk (CSRS-screener) i n the past one month Have you wished you were or wished you could go to sleep and not wake up? N o, i n the past one month Have you actually had any thoughts of killing yourself? N o, H ave you ever done anything, started to do anything, or prepared to do anything to end your life? N o. D epression screening: PHQ-9 L ittle interest or pleasure in doing things S everal days, F eeling down, depressed, or hopeless S everal days, T rouble falling or staying asleep, or sleeping too much S everal days, F eeling tired or having little energy S everal days, P oor appetite or overeating S everal days, F eeling bad about yourself or that you are a failure, or have let yourself or your family down S everal days, T rouble concentrating on things, such as reading the newspaper or watching television S everal days, M oving or speaking so slowly that other people could have noticed; or the opposite, being so fidgety or restless that you have been moving around a lot more than usual N ot at all, T houghts that you would be better off or of hurting yourself in some way N ot at all, T otal Score 7 , I nterpretation M ild Depression. I ntervention D epression Screening Findings P ositve, F ollow-Up for Depression M [facility] treatment assessment, Patient follow-up to return when and if necessary, A dditional Evaluation for Depression P sychiatric interview and evaluation, N heidy of the standardized tool used for adult depression screening:?Patient Health Questionnaire (PHQ-9). H istory of Presenting Problem: Anxiety w ith excessive worry, with restlessness. D epression w ith decreased concentration, with decreased energy, with sad mood. M ood lability hx irritability, racing thoughts, elevated mood, increased energy, impulsivity, increased spending. . P sychosis n o hx psychosis. S uicidal ideation d enies. S ubstance abuse a lcohol- relapse 03/2024. Going to AA meetings. . Here for follow up. Lurasidone started last [...] had cravings was two weeks ago. Contacted [facility] to [facility]. Sleep is fair, getting about 6-7 hours nightly. Appetite is good. P ast Psychiatric Hospitalizations: Previous psychiatric hospitalizations P revious Psychiatric Hospitalization N o. Social hx: . 4 children.Currently residing with daughter. 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, arthritis, high [...] irritability, difficulty concentrating, substance abuse. C yi [facility] for details. ? * Medical History: * Surgical History: P [...] obacco Control (Standard) T obacco use: N onsmoker, Juliana dditional Findings: Tobacco user C hews tobacco. D rug/Alcohol: D rugs H ave you used drugs other than those for medical reasons in the past 12 months??No. A JUANCARLOS-C (Standard) D id you have a drink containing alcohol in the past year? Y es, H ow often did you have six or more drinks on one occasion in the past year? 4 or more times a week (4 points), H ow many drinks did you have on a typical day when you were drinking in the past year? 5 or 6 drinks (2 points), H ow often did you have a drink containing alcohol in the past year? D aily or almost daily (4 points). M iscellaneous: O ccupation: Retired. Safety issues A re there any firearms in the house? N o. A dvance Care Planning A re you your own decision-maker Y es, D o you have Power of Sizing End Bander for Health or Medical? N o, D o you have a power of deputy commonwealth's attorney for health? Y es, D o you have power of deputy commonwealth's attorney for Medical ? Y es, I f yes, then please bring the POA paperwork so that we can upload it. Y es. S ocial History: H pérez M arital Status: M arried, N umber of Adults in household: 2 , N umber of Children in Household: 0 , L evel of Education: F in[employer]. * Medications: T akingOlmesartan Medoxomil 20 MG [...] Allergies: N .K.D.A.no[Allergies Verified] Objective: * Vitals: * Examination: P sychiatry: Appearance: w ell-groomed. [...] A lcohol dependence, in remission - F10.21 ---differential dx: ADHD, pt suspects ADHD; symptoms more consistent with bipolar disorder. Will monitor response to mood stabilizer and can re-evaluate if needed. Plan: * Treatment: 2. A lcohol dependence, in remission Start Naltrexone HCl Tablet, 50 MG, 1 tablet, Orally, Once a day, 90 days, 90 Tablet, Refills 0.? 3. O thers Notes: Start naltrexone 50mg daily for alcohol cravings. -PDMP checked to verify no opioid medication prescribed. Patient educated on all medications including potential benefits, side effects, risks. Educated on proper dosing schedule and importance of compliance. Scheduled for intake at [facility] Clinical Notes: -Assessment and treatment plan reviewed with patient. -Compliance with treatment plan importance discussed. -Discussed the risks/benefits of this medication -Discussed medication side effects. -Contact office if symptoms worsen. -Discussed that it can take up to 6-8 weeks to see full therapeutic effects of psychotropic medications. -Crisis prevention hotline 988. * Procedure Codes: 9 6127 BEHAV ASSMT W/SCORE & DOCD/STAND [id number] VISIT COMPLEXITY INHERENT TO ONGOING CARE RELATED TO A PATIENT'S SINGLE, SERIOUS CONDITION OR A COMPLEX [id number] CLIN DEPRESSION SCREEN DOC * Follow Up: 4 Weeks (Reason: medication follow up) * Billing Information: * Visit Code: 58506 OFFICE OUTPATIENT VISIT 25 MINUTES DETAILED HISTORY AND EXAM/MODERATE MEDICAL DECISION MAKING. * Procedure Codes: 29530 BEHAV ASSMT W/SCORE & DOCD/STAND INSTRUMENT. G2211 VISIT COMPLEXITY INHERENT TO ONGOING CARE RELATED TO A PATIENT'S SINGLE, SERIOUS CONDITION OR A COMPLEX CONDITION. G8431 CLIN DEPRESSION SCREEN DOC. * L TRANSPORTATION ENGINEER Sign off status: Completed true * Provider: CELE ARIAS Date: 0 04/04/2024 Generated for Lia carvajal/Love/Jojo on: 0 05/31/2024 01:09 AM CDT History [...] had cravings was two weeks ago. Contacted [facility] to go through [facility]. Sleep is fair, [...] 4 children.Currently residing with daughter. 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
[2024-05-31 09:06] VITALS: BP 141/82; PULSE 91; RESP 20; TEMP 36.1; O2SAT 98; BMI 33.7
[2024-05-31] MEDS: LACTATED RINGERS 1,000 ML 150 ML IV CONT (09:19)
--- NOTE | 2024-05-31 09:25 | P.PNAN_ITS ---
Anes - Initial Pre Proc Eval Procedure: Operation Date: 05/31/24 10:30 Proposed Procedures p Screening Colonoscopy - Lit León MD Date/Time: 05/31/24 09:25 Surgeon: Lit León MD Pre Op Diagnosis: malignant neoplasm of colon Patient Data Age: 59 Gender: M Height: 1.8 m Weight: 109.6 kg Last Vital Signs Temp 36.1 C L 05/31/24 09:06 Pulse 91 05/31/24 09:06 Resp 20 05/31/24 09:06 BP 141/82 H 05/31/24 09:06 Pulse Ox 98 05/31/24 09:06 O2 Del Method Room Air 05/31/24 09:06 Allergies Allergy/AdvReac Type Severity Reaction Status Date / Time No Known Allergies Allergy Verified 05/31/24 09:04 Home Medications ?Medication ?Instructions ?Recorded ?Confirmed ?Type escitalopram oxalate 20 mg tablet 20 mg PO DAILY #365 tabs 02/07/22 05/31/24 Rx (Lexapro) rosuvastatin 10 mg tablet 10 mg PO DAILY #365 tabs 02/07/22 05/31/24 Rx allopurinol 300 mg tablet 300 mg PO DAILY #90 tabs 12/02/23 05/31/24 Rx efinaconazole 10 % topical 1 applic topical QHS 48 weeks #8 mL 03/15/24 05/31/24 Rx solution with applicator (Jublia) tramadol 50 mg tablet 50 mg PO BID PRN pain #30 tabs 03/17/24 05/19/24 Rx cyclobenzaprine 10 mg tablet 10 mg PO TID #60 tabs 03/30/24 05/31/24 Rx olmesartan 40 mg tablet 40 mg PO DAILY #90 tabs 03/30/24 05/31/24 Rx celecoxib 200 mg capsule (Celebrex) 200 mg PO DAILY #30 caps 04/14/24 05/31/24 Rx Patient hx anesthesia problems: none Family hx anesthesia problems: none Results Review: All pre-operative results and documents have been reviewed as part of the pre- operative evaluation. [facility] Past Medical History Medical History Prostate cancer Dyslipidemia Essential (primary) hypertension Gout Surgical History Surgical History H/O colonoscopy 2018 H/O hernia repair H/O prostatectomy Family History Family History Father Carcinoma of colon Hypertension Mother Cancer Hypertension Cerebrovascular accident Sibling Hypertension Grandparent Cancer Social History Social History Social History: 03/04/24 somewhat confident with medical forms Smoking status: Current every day smoker Smokeless tobacco user: chewing tobacco Alcohol intake: current Alcohol use details: Whiskey Substance use: never Substance use type: does not use Do You Feel Safe in your Home?: Yes Lack of Transportation: YES Lack of Food: Never True Current Housing: I Have Housing Concerned About Future Housing: No Difficulty Paying Gas/Electric Bills: No Difficulty Paying for Meds: No Currently Unemployed: No Education: Associate Degree Difficulty w/ Childcare or Family Care: No Living arrangements: with family Occupation/Education: occupation Gender identity (if verbalized by the patient): Male Sexual Orientation (if Verbalized by the Patient): Straight or Heterosexual Anes - Eval Final PreProcedure Day of Procedure 05/31/24 09:25 Patient weight: obese Heart: regular rate and rhythm Lungs: clear to auscultation Airway: Mallampati scale class II Neurological: alert and oriented Last oral intake: >/= 8 hours ASA classification: III Emergent: no Anesthetic plan: proceed Anesthesia type and monitoring: general GIVS and standard monitoring Results Review: All pre-operative results and documents have been reviewed as part of the pre- operative evaluation. Informed Consent: The patient's anesthetic plan and its attendant risks and benefits were discussed with the patient/family/POA. Questions were solicited and answers provided to the satisfaction of the patient/family/POA.
--- NOTE | 2024-05-31 09:49 | PM.IMHP ---
H&P: HPI History of Present Illness Date/Time: 05/31/24 09:49 Chief Complaint: Family history of colon cancer -history of colon polyps Narrative: This patient has family history of colorectal cancer. his mother had when she was 70 years old. In addition, he already had 2 colonoscopies, the last one around 5 years ago, always finding polyps. Review of Systems Review of Systems: All systems reviewed & are unremarkable except as noted in HPI and below PMFSH Past Medical History Medical History Prostate cancer Dyslipidemia Essential (primary) hypertension Gout Surgical History Surgical History H/O colonoscopy 2018 H/O hernia repair H/O prostatectomy Family History Family History Father Carcinoma of colon Hypertension Mother Cancer Hypertension Cerebrovascular accident Sibling Hypertension Grandparent Cancer Social History Social History Social History: 03/04/24 somewhat confident with medical forms Smoking status: Current every day smoker Smokeless tobacco user: chewing tobacco Alcohol intake: current Alcohol use details: Whiskey Substance use: never Substance use type: does not use Do You Feel Safe in your Home?: Yes Lack of Transportation: YES Lack of Food: Never True Current Housing: I Have Housing Concerned About Future Housing: No Difficulty Paying Gas/Electric Bills: No Difficulty Paying for Meds: No Currently Unemployed: No Education: Associate Degree Difficulty w/ Childcare or Family Care: No Living arrangements: with family Occupation/Education: occupation Gender identity (if verbalized by the patient): Male Sexual Orientation (if Verbalized by the Patient): Straight or Heterosexual Meds Home Medications and Allergies Home Medications ?Medication ?Instructions ?Recorded ?Confirmed ?Type escitalopram oxalate 20 mg tablet 20 mg PO DAILY #365 tabs 02/07/22 05/31/24 Rx (Lexapro) rosuvastatin 10 mg tablet 10 mg PO DAILY #365 tabs 02/07/22 05/31/24 Rx allopurinol 300 mg tablet 300 mg PO DAILY #90 tabs 12/02/23 05/31/24 Rx efinaconazole 10 % topical 1 applic topical QHS 48 weeks #8 mL 03/15/24 05/31/24 Rx solution with applicator (Jublia) tramadol 50 mg tablet 50 mg PO BID PRN pain #30 tabs 03/17/24 05/19/24 Rx cyclobenzaprine 10 mg tablet 10 mg PO TID #60 tabs 03/30/24 05/31/24 Rx olmesartan 40 mg tablet 40 mg PO DAILY #90 tabs 03/30/24 05/31/24 Rx celecoxib 200 mg capsule (Celebrex) 200 mg PO DAILY #30 caps 04/14/24 05/31/24 Rx Allergies Allergy/AdvReac Type Severity Reaction Status Date / Time No Known Allergies Allergy Verified 05/31/24 09:04 Vital Signs Vital Signs - 24 hr 05/31/24 09:06 Temperature 96.9 F L Pulse Rate 91 Respiratory Rate 20 Blood Pressure 141/82 H Pulse Oximetry 98 Oxygen Delivery Room Air Exam Const: General: cooperative and healthy appearing Resp: Effort & Inspection: normal respiratory effort and able to speak in complete sentences Auscultation: clear to auscultation bilaterally Cardio: Rate: regular rate Rhythm: regular rhythm GI: Inspection: normal to inspection GI Palp: No No hepatosplenomegaly present Auscultation: normal bowel sounds Rectal Exam: deferred Skin: General skin exam: normal color Psych: Appearance: grossly normal Mental Status: mental status grossly normal Assessment and Plan Assessment and plan (1) Family history of colorectal cancer: Code(s): Z80.0 - Family history of malignant neoplasm of digestive organs Status: Acute Assessment and Plan: The patient is deemed a good candidate for the procedure. Consent signed. Will proceed.
[2024-05-31 10:16] VITALS: BP 104/64; PULSE 86; RESP 14; O2SAT 98
[2024-05-31 10:26] VITALS: BP 107/65; PULSE 83; RESP 13; O2SAT 98
[2024-05-31 10:36] VITALS: BP 127/77; PULSE 73; RESP 19; O2SAT 100
== END 2024-05-31 10:40 | disposition home or self-care (01) ==
PROVIDERS: PCP Nurse Practitioner Family; Referring Provider Nurse Practitioner Family; Visit Provider Internal Medicine Gastroenterology
PROC: 0DJD8ZZ Inspection of Lower Intestinal Tract, Via Natural or Artificial Opening Endoscopic (ICD-10-PCS; CPT 45378; principal; 2024-05-31 10:30)
DX: Z12.11 Encounter for screening for malignant neoplasm of colon (principal); E78.5 Hyperlipidemia, unspecified; I10 Essential (primary) hypertension; F17.210 Nicotine dependence, cigarettes, uncomplicated; F17.220 Nicotine dependence, chewing tobacco, uncomplicated; E66.9 Obesity, unspecified; Z68.33 Body mass index [BMI] 33.0-33.9, adult; Z79.891 Long term (current) use of opiate analgesic; Z79.1 Long term (current) use of non-steroidal anti-inflammatories (NSAID); Z98.890 Other specified postprocedural states; Z86.0100 Personal history of colon polyps, unspecified; Z85.46 Personal history of malignant neoplasm of prostate; Z80.0 Family history of malignant neoplasm of digestive organs; Z82.49 Family history of ischemic heart disease and other diseases of the circulatory system
CPT/HCPCS: 45378; J2003; J2704; J7120

== ENCOUNTER 2024-12-24 18:36 | Emergency (ER) | payer BC, SELFPAY ==
--- NOTE | 2024-12-24 18:55 | ED.NEUROSD ---
HPI - Neuro Symptoms/Deficit General Chief Complaint: Suspected CVA Stated Complaint: CODE CVA Time Seen by Provider: 12/24/24 18:40 Source: patient and EMS Mode of arrival: EMS Limitations: intoxication History of Present Illness HPI Narrative: This is a 59-year-old male with history of prostate cancer, hypertension, hyperlipidemia who presents to the ED via EMS for altered mental status. Per EMS, patient was found in his truck by a neighbor's. He was there for approximately 2 hours it would not wake up so EMS was called. Per EMS, he would not answer their questions when they arrived. Here, patient reports he does not know why he is here it is rather agitated it is uncooperative with history taking. Related Data Allergies Allergy/AdvReac Type Severity Reaction Status Date / Time No Known Allergies Allergy Verified 11/29/24 10:29 Review of Systems Review of Systems: ROS unobtainable: Yes unobtainable due to mental status PMFSH Past Medical History Medical History Prostate cancer Dyslipidemia Essential (primary) hypertension Gout Surgical History Surgical History H/O colonoscopy 2018 H/O hernia repair H/O prostatectomy Family History Family History Father Carcinoma of colon Hypertension Mother Cancer Hypertension Cerebrovascular accident Sibling Hypertension Grandparent Cancer Social History Social History Social History: 03/04/24 somewhat confident with medical forms Smoking status: Current every day smoker Tobacco type: smokeless tobacco Smokeless tobacco user: chewing tobacco Alcohol intake: current Alcohol use details: Karan Substance use: never Substance use type: does not use Do You Feel Safe in your Home?: Yes Lack of Transportation: YES Lack of Food: Never True Current Housing: I Have Housing Concerned About Future Housing: No Difficulty Paying Gas/Electric Bills: No Difficulty Paying for Meds: No Currently Unemployed: No Education: Associate Degree Difficulty w/ Childcare or Family Care: No Living arrangements: with family Occupation/Education: occupation Gender identity (if verbalized by the patient): Male Sexual Orientation (if Verbalized by the Patient): Straight or Heterosexual Spiritual care concerns: No Exam Narrative: APPEARANCE: No acute distress, nontoxic, resting in bed EYES: EOMI HEENT: Normocephalic, atraumatic, OMM RESPIRATORY: No respiratory distress Clear to auscultation bilaterally with no rhonchi wheezing or rales. CARDIOVASCULAR: Regular rate and rhythm without murmurs rubs or gallops. ABDOMINAL: Soft, nontender, nondistended, no rebound or guarding MUSCULOSKELETAl: Moves all extremities. No clubbing, cyanosis or edema. NEURO: Awake and alert. Mildly slurred speech, uncooperative with questions. No focal deficits but unable to fully assess due to his unwillingness to cooperate. SKIN:: Warm, dry. No rashes lesions or abrasions PSYCHIATRIC: Normal affect/mood, MDM - Neuro Symptoms/Deficit MDM Narrative Medical decision making narrative: Who 59-year-old male presenting for concerns for altered mental status. On initial evaluation, patient was agitated, not cooperating with history taking or exam. He had no focal deficits. He was no acute distress. Patient was continued to act uncooperative with the staff and was refusing CT scan and additional workup. On further discussion with the patient, he did admit to drinking alcohol and he was passed out in his truck. He is adamantly refusing any workup at this time. He has no focal deficits. He is AOx4 at this time. HE continues to refuse any further stroke work up. Patient's daughter did arrive to take the patient home. Differential Diagnosis Differential diagnosis: Likely delirium, cerebrovascular accident, transient cerebral ischemia and other (Alcohol intoxication) Medical Records Attestation: I reviewed the patient's medical records. Lab Data Attestation: I reviewed the patient's lab results. 12/24/24 19:05 12/24/24 19:05 Labs: Lab Results 12/24/24 Range/Units 19:05 WBC 7.1 (4.5-10.0) K/mm3 RBC 4.20 L (4.6-6.20) M/mm3 Hgb 13.8 L (14.0-18.0) g/dL Hct 42.0 (42.0-52.0) % MCV 100.0 (80-100) fl MCH 32.9 (26-34) pg MCHC 32.9 (32-36) g/dl RDW 15.0 H (11.5-14.5) % Plt Count 239 (150-375) k/mm3 MPV 8.4 (7.4-10.4) fl Immature Gran % (Auto) 0.8 H (0-0.5) % Neut % (Auto) 36.0 L (45.5-73.1) % Lymph % (Auto) 52.5 H (18.3-44.2) % Beauregard % (Auto) 7.4 (2.6-8.5) % Eos % (Auto) 2.2 (0-4.4) % Baso % (Auto) 1.1 (0.2-1.2) % Lymph # (Auto) 3.75 H (0.9-3.2) K/mm3 Bea[place]gard # (Auto) 0.5 (0.1-0.6) K/mm3 Eos # (Auto) 0.2 (0-0.3) K/mm3 Baso # (Auto) 0.1 (0.0-0.1) K/mm3 Abs Immat Gran (auto) 0.06 H (0.00-0.031) K/mm3 Absolute Neuts (auto) 2.6 (1.3-6.7) K/mm3 Absolute Nucleated RBC 0.000 (0.0-0.012) K/mm3 Nucleated RBC % 0.0 (0.0-0.2) % PT 12.9 (11.1-14.7) Seconds INR 1.0 APTT 27.2 (22.3-36.8) Seconds Sodium 145 (137-145) mmol/L Potassium 4.1 (3.4-5.0) mmol/L Chloride 107 (98-107) mmol/L Carbon Dioxide 26 (22-30) mmol/L Anion Gap 12 (4-12) mmol/L BUN 15 (9-20) mg/dL Creatinine 1.07 (0.7-1.3) mg/dL Estim Creat Clear Calc Not Reportable Estimated GFR > 60 (59 - ) Glucose 101 (65-110) mg/dL Calcium 8.8 (8.4-10.2) mg/dL Total Bilirubin 0.2 (0.2-1.3) mg/dL AST 26 (17-59) U/L ALT 16 (6-50) U/L Alkaline Phosphatase 44 (38-126) U/L Troponin I < 0.012 (0.000-0.034) ng/mL Total Protein 7.6 (6.3-8.2) g/dL Albumin 4.5 (3.5-5.1) g/dL Ethyl Alcohol 350 H* (<10) mg/dL Discharge Plan Discharge Clinical Impression: Alcohol intoxication Patient Disposition: Home Condition: Stable Instructions: Antibiotic Form, Abuse of Alcohol (DC) Additional Instructions: Follow up with PCP in the next few days for reevaluation Patient Language: Zimbabwean Prescriptions: No Action methocarbamol 500 mg tablet 500 mg PO TID PRN (Reason: muscle spasm) Qty: 20 0RF escitalopram oxalate [Lexapro] 20 mg tablet 20 mg PO DAILY Qty: 365 0RF Jublia 10 % solution with applicator 1 applic topical QHS 336 Days Qty: 8 0RF olmesartan 40 mg tablet 40 mg PO DAILY Qty: 90 1RF allopurinol 300 mg tablet 300 mg PO DAILY Qty: 90 1RF rosuvastatin 10 mg tablet 10 mg PO DAILY Qty: 90 3RF Follow-up/Referrals: Jazzy Newell APRN [Primary Care Provider, Family Practice]
[2024-12-24 19:14] LABS: Hematocrit 42.0 % (42.0-52.0); Hemoglobin 13.8 g/dL (14.0-18.0); Immature Granulocyte Percent A 0.8 % (0-0.5); Lymphocytes Absolute Auto 3.75 K/mm3 (0.9-3.2); Mean Corpuscular HGB Conc 32.9 g/dl (32-36); Mean Corpuscular Hemoglobin 32.9 pg (26-34); Mean Corpuscular Volume 100.0 fl (80-100); Nucleated Red Blood Cells Absolute Auto 0.000 K/mm3 (0.0-0.012); Nucleated Red Blood Cells Perc 0.0 % (0.0-0.2); Platelet Count Result 239 k/mm3 (150-375); Red Blood Count 4.20 M/mm3 (4.6-6.20); White Blood Count 7.1 K/mm3 (4.5-10.0)
--- NOTE | 2024-12-24 19:14 | PC.NURSE ---
EDP Dr. Sanchez gave verbal order to cancel the orders due to the pt wanting to leave
--- NOTE | 2024-12-24 19:18 | PC.NURSE ---
pt is A&OX4, answering questions appropriately. pt has admitted to drinking a pint of tereso today. pt is refusing a CT scan and other testing. this RN called pt to come worm picker the pt. pt is out of town, pt daughter is coming to pick him up
[2024-12-24 19:25] LABS: Alanine Aminotransferase 16 U/L (6-50); Albumin Level 4.5 g/dL (3.5-5.1); Alkaline Phosphatase 44 U/L (38-126); Anion Gap 12 mmol/L (4-12); Aspartate Amino Transferase 26 U/L (17-59); Bilirubin,Total 0.2 mg/dL (0.2-1.3); Blood Urea Nitrogen 15 mg/dL (9-20); Calcium 8.8 mg/dL (8.4-10.2); Carbon Dioxide 26 mmol/L (22-30); Chloride 107 mmol/L (98-107); Estimated Glomerular Filt Rate > 60; Glucose 101 mg/dL (65-110); Potassium 4.1 mmol/L (3.4-5.0); Sodium 145 mmol/L (137-145); Total Protein 7.6 g/dL (6.3-8.2)
[2024-12-24 19:26] LABS: INR 1.0; Prothrombin Time 12.9 Seconds (11.1-14.7)
[2024-12-24 19:27] LABS: Partial Thromboplastin Time 27.2 Seconds (22.3-36.8)
[2024-12-24 19:44] LABS: Troponin I < 0.012 ng/mL (0.000-0.034)
== END 2024-12-24 19:58 | disposition home or self-care (01) ==
LOC: ANHED 19:55
PROVIDERS: Emergency Provider Student in an Organized Health Care Education/Training Program; PCP Nurse Practitioner Family
DX: F10.129 Alcohol abuse with intoxication, unspecified (principal); Y90.8 Blood alcohol level of 240 mg/100 ml or more; I10 Essential (primary) hypertension; E78.5 Hyperlipidemia, unspecified; M10.9 Gout, unspecified; Z85.46 Personal history of malignant neoplasm of prostate; Z90.79 Acquired absence of other genital organ(s); F17.220 Nicotine dependence, chewing tobacco, uncomplicated
CPT/HCPCS: 36415; 80053; 82077; 82948; 84484; 85025; 85610; 85730; 99284